=== PATIENT | female | born 1935 | race Caucasian/White ===

== ENCOUNTER 2018-01-17 09:56 | Outpatient (CLI) | payer MEDICARE | END 2018-01-17 09:57 | disposition home or self-care (01) | LOC: BICMAMMO 09:56 | PROVIDERS: ATTEND Internal Medicine Medical Oncology | DX: Z08 Encounter for follow-up examination after completed treatment for malignant neoplasm (principal); Z85.3 Personal history of malignant neoplasm of breast; Z85.72 Personal history of non-Hodgkin lymphomas; Z80.3 Family history of malignant neoplasm of breast | CPT/HCPCS: 77066; G0279 ==

== ENCOUNTER 2018-05-21 16:14 | Observation (INO) | payer MEDICARE ==
[2018-05-21 17:04] LABS: #Eosinphils 0.2 thou/uL (0.0-0.7); #Lymphocytes 1.8 thou/uL (1.20-3.40); #Monocytes 1.1 thou/uL (0.11-0.59); #Neutrophils 4.9 thou/uL (1.40-6.50); %Basophils 0.4 % (0.0-1.0); %Lymphocytes 22.1 % (21.0-51.0); %Monocytes 13.7 % (0.0-10.0); %Neutrophils 60.8 % (42.0-75.0); Hemoglobin 14.5 g/dL (12.0-16.0); Mean Corpuscular HGB CONC 32.9 g/dL (32.0-36.0); Mean Corpuscular Hemoglobin 30.3 pg (27.0-31.0); Mean Corpuscular Volume 92.2 fL (78.0-98.0); Mean Platelet Volume 8.9 fL (7.4-10.4); Platelet Count 122 thou/uL (130-400); RBC Distribution Width 13.4 % (11.5-14.5); Red Blood Cell (RBC) Count 4.76 mill/uL (4.20-5.40)
--- NOTE | 2018-05-21 17:09 | RAD ---
CHEST 1 VIEW: HISTORY: An 83-year-old female with a history of chest pain, left-sided neck pain. FINDINGS: Left ICD. Right subclavian catheter and injection port. Borderline cardiomegaly. Moderate-size hia gautam hernia. Arthrosis changes of both shoulders. Linear parenchymal changes bilaterally which appea r stable with some minimal pleural thickening in the left costophrenic angle. IMPRESSION: Overall stable appearance to the chest. Moderate-sized hiatal hernia. No evidence for pneumonia or other acute process. POS: JORGE
[2018-05-21 17:14] LABS: INR-International Normal Ratio 1.3; PTT 31.4 SEC (22.9-36.1); Prothrombin Time 16.4 SEC (12.0-14.7)
[2018-05-21 17:28] LABS: ALT (SGPT) 13 U/L (8-55); AST (SGOT) 23 U/L (5-34); Albumin 4.2 g/dL (3.4-4.8); Alkaline Phosphatase 76 U/L (40-150); Anion Gap 11 mmol/L (10-20); BUN (Urea Nitrogen) 17 mg/dL (9.8-20.1); Bilirubin, Total 0.7 mg/dL (0.2-1.2); Calc. Creatinine Clearance 0 mL/min (70-130); Calcium 9.6 mg/dL (7.8-10.44); Carbon Dioxide 26 mmol/L (23-31); Chloride 98 mmol/L (98-107); Estimated GFR-MDRD 66; Glucose 132 mg/dL (83-110); Potassium 3.8 mmol/L (3.5-5.1); Protein, Total 7.2 g/dL (6.0-8.3); Sodium 131 mmol/L (136-145)
[2018-05-21 20:47] LABS: Troponin I Less than 0.010 ng/mL (< 0.028)
[2018-05-21] MEDS ORDERED: Polyethylene Glycol 3350 17 GM Packet PO SCH (21:00)
[2018-05-21] MEDS ORDERED: Fluticasone Propionate Nasal Spray 16 gm Bottle NASAL PRN (22:11)
[2018-05-21] MEDS ORDERED: Loperamide HCl 2 MG CAP PO PRN ×2 (22:14)
[2018-05-21] MEDS ORDERED: hydrALAZINE 20 MG/ML VIAL SLOW IVP PRN (22:14)
[2018-05-21] MEDS ORDERED: Nitroglycerin 0.4 MG TAB (25 Tab Bottle) SL PRN (22:14)
[2018-05-21] MEDS ORDERED: Senokot S 8.6-50 MG TAB PO PRN (22:14)
[2018-05-21] MEDS ORDERED: Sodium Chloride 0.65% Nasal 44 ML BOT EA NARE PRN (22:14)
[2018-05-21] MEDS ORDERED: cloNIDine 0.1 MG TAB PO PRN (22:14)
[2018-05-21] MEDS ORDERED: Ondansetron PF 4 MG/2 ML Vial IVP PRN (22:14)
[2018-05-21] MEDS ORDERED: Benzonatate 100 MG CAP PO PRN (22:14)
[2018-05-21] MEDS ORDERED: Acetaminophen 500 MG TAB PO PRN (22:14)
[2018-05-21] MEDS ORDERED: Aspirin 325 mg Enteric Coated Tablet PO SCH (22:15)
[2018-05-21] MEDS ORDERED: Metoprolol Tartrate 25 MG TAB PO SCH (22:15)
[2018-05-21 23:27] LABS: Troponin I Less than 0.010 ng/mL (< 0.028)
[2018-05-22 00:14] VITALS: BMI 31.0
--- NOTE | 2018-05-22 01:55 | HP ---
PRIMARY CARE PHYSICIAN: Rebecca Govea DO PRIMARY ACADEMIC REGISTRAR: Stephen Galvan MD The patient was seen prior to midnight. CHIEF COMPLAINT: Chest pain. HISTORY OF PRESENTING ILLNESS: Ms. Welch is a very pleasant 83-year-old female with past medical history of lymphoma, tachy-ida syndrome status post pacemaker placement, chronic atrial fibrillation, hypothyroidism, who presented to the emergency room with the above-mentioned complaint. History is mainly obtained by the patient herself, who is a rather poor historian because she is extremely hard of hearing. Electronic medical records have been reviewed. According to Ms. Welch, she had to call EMS when she had sudden onset of chest pain earlier this afternoon around 2:30 p.m. She had just sat down on bed after changing her clothes and she states that it hurt in the center of her chest and went to her upper back. She had no nausea, vomiting, diaphoresis, lightheadedness, or palpitation with that. She has not had any shortness of breath. She denies having similar symptoms in the past. She has no recent illnesses. She has history of tachy-ida syndrome requiring pacemaker placement, as well as chronic atrial fibrillation on chronic anticoagulation with Xarelto. She is compliant with the medications. The patient has a cardiac catheterization in 2015, which was negative for any significant coronary artery disease. Upon presentation to the emergency room, she was hemodynamically stable with a blood pressure of 150/72, pulse of 77. Her initial workup included a 12-lead EKG, which showed rate-controlled atrial fibrillation at 68 beats per minute with nonspecific ST and T-wave abnormality, possibly digitalis effect. QTc at 408 milliseconds. Her chest x-ray was unremarkable. Her cardiac enzymes have been trended since then and troponin has been within normal limits x3. BNP is 170. She is now being admitted under observation status for further workup for chest pain and rule out ACS. At the time of my evaluation, the patient is symptom free and resting comfortably. PAST MEDICAL HISTORY: 1. Chronic atrial fibrillation on chronic anticoagulation with Xarelto. 2. History of tachy-ida syndrome, status post pacemaker placement. 3. History of chronic diastolic congestive heart failure. 4. Hypothyroidism. 5. Dyslipidemia. 6. Osteoarthritis. PROCEDURES DONE: 1. Cardiac catheterization in August 2015, which revealed no significant coronary artery disease. 2. Pacemaker insertion, 09/10/2015. 3. Thyroid surgery. 4. Right knee surgery. 5. Bilateral hip replacement. ALLERGIES: NO KNOWN MEDICATION ALLERGIES. FAMILY HISTORY: Significant for mother with colon cancer and father with heart disease. SOCIAL HISTORY: She lives alone and her family lives close by. Walks with the help of a rolling walker. No history of drug, alcohol, or tobacco abuse. HOME MEDICATIONS: Listed as below: 1. Tylenol p.r.n. 2. Digoxin 0.125 mg daily. 3. Aspirin 81 mg daily. 4. Iron 27 mg daily. 5. Lasix 20 mg daily. 6. Flonase daily. 7. Synthroid 112 mcg daily. 8. Lansoprazole 30 mg daily. 9. [id number] g daily. 10. Fish oil daily. 11. Xarelto 20 mg daily. 12. Pravastatin 20 mg daily. 13. Lopressor 12.5 mg p.o. b.i.d. REVIEW OF SYSTEMS: A 12-point review of system is done. It is negative except for those mentioned in the history and physical. CODE STATUS: Full code discussed with the patient in detail. LABORATORY DATA: Her CBC is unremarkable. PT, PTT, INR are within normal limits. Serum chemistries unremarkable. Blood sugar 132, troponin less than 0.010 x3. BNP of 170. Chest x-ray by my review shows a moderate-sized hiatal hernia. She has a right subclavian port and pacemaker in place on the left side. There is no pleural effusion, edema, or infiltrate. A 12-lead EKG per my review shows rate-controlled atrial fibrillation. PHYSICAL EXAMINATION: VITAL SIGNS: Upon presentation, blood pressure 150/72, pulse of 77, respirations 20, saturating 98% on room air, temperature 98.7. GENERAL: No acute distress. Awake, alert, oriented x3. Lying comfortably in bed, in no acute distress. HEENT: Mucous membrane is moist and pink. No oropharyngeal exudate or erythema. Head is normocephalic, atraumatic. Pupils are equal, reactive to light and accommodation. Extraocular movement intact. NECK: Supple without any lymphadenopathy, JVD or bruit. CHEST: Clear to auscultation without any wheezing, rales or rhonchi. Rhythm is regular without any murmurs, rubs, or gallops. ABDOMEN: Soft, nontender, nondistended with positive bowel sounds. EXTREMITIES: Free of any cyanosis, clubbing, or edema. NEUROLOGICAL: Nonfocal. SKIN: Free of any rashes or bruises, feels warm and dry to touch. PSYCHIATRIC: Normal affect. IMPRESSION AND PLAN: 1. Chest pain. The patient had transient symptoms and most likely it is related to her moderate-sized hiatal hernia. We will continue her on proton pump inhibitor, but will also give her a dose of aspirin. Continue her aspirin, statin, and beta agata for now. The patient had a normal cardiac catheterization two years ago. To rule out acute coronary syndrome, we will also have a nuclear medicine stress test in the morning. She is hemodynamically stable. Serial cardiac enzymes have been trended and are negative. Likelihood of acute coronary syndrome clinically is rather low. If her stress test is abnormal, we will consult Cardiology. 2. History of chronic atrial fibrillation. She is currently rate controlled on beta blockers and will continue that. Continue digoxin and Xarelto for secondary stroke prophylaxis. 3. History of chronic diastolic congestive heart failure, seems to be at baseline. The patient is asymptomatic. I do not have any echocardiogram for her in the chart. 4. History of tachy-ida syndrome, status post pacemaker placement. We will have the pacemaker interrogated. 5. Hypothyroidism. We will restart her home medication of levothyroxine. 6. Deep venous thrombosis and gastrointestinal prophylaxis. 7. Code status, full code discussed with the patient in detail. Ms. Welch is currently being admitted to the hospital under observation status to rule out ACS. Further management will depend upon her clinical course. Job ID: [id number]
[2018-05-22] MEDS ORDERED: Levothyroxine Sodium 112 MCG TAB PO SCH (06:00)
[2018-05-22] MEDS ORDERED: Fish Oil 1,000 MG CAP PO SCH (09:00)
[2018-05-22] MEDS ORDERED: Metoprolol Tartrate 25 MG TAB PO SCH (09:00)
[2018-05-22] MEDS ORDERED: Furosemide 40 MG TAB PO SCH (09:00)
[2018-05-22] MEDS ORDERED: Digoxin 0.125 MG TAB PO SCH (09:00)
[2018-05-22] MEDS ORDERED: Ferrous Sulfate 325 MG TAB PO SCH (09:00)
[2018-05-22] MEDS ORDERED: Multivit, Therapeutic 1 TAB PO SCH (09:00)
[2018-05-22] MEDS ORDERED: ADENOSINE 60 MG/20 ML VIAL ONE (09:44)
--- NOTE | 2018-05-22 15:21 | NM ---
NUCLEAR MEDICINE CARDIAC MYOCARDIAL PERFUSION SPECT EJECTION FRACTION STUDY WALL MOTION CINE: HISTORY: 83-year-old female with congestive heart failure, dyslipidemia, atrial fibrillation, and family histo ry of coronary artery disease, presents with chest pain. TECHNIQUE: Number of days: 1 Rest study: Tc99m sestamibi (Cardiolite) dose: 10.6 mCi Pharmacologic stress: adenosine dose: 48.6 mg Stress study: Tc99m sestamibi (Cardiolite) dose: 33.0 mCi FINDINGS: CARDIAC (MYOCARDIAL PERFUSION) SPECT There are no reversible myocardial perfusion defects. EJECTION FRACTION STUDY EF = 53% WALL MOTION CINE Normal. IMPRESSION: No evidence of reversible ischemia. JARROD Elliott POS: JORGE
[2018-05-22 15:58] VITALS: BP 135/64; TEMP 98.6
[2018-05-22] MEDS ORDERED: Rivaroxaban 10 MG TAB PO SCH (17:00)
[2018-05-22] MEDS ORDERED: Pravastatin Sodium 20 MG TAB PO SCH (21:00)
--- NOTE | 2018-05-23 06:40 | DIS ---
DATE OF ADMISSION: 05/21/2018 DATE OF DISCHARGE: 05/22/2018 DIAGNOSIS AT THE TIME OF DISCHARGE: Chest pain, acute coronary syndrome was ruled out with EKG, three sets of cardiac enzymes and nuclear medicine stress test. HISTORY OF PRESENT ILLNESS: The patient is an 83-year-old female with past medical history for lymphoma, tachy-ida syndrome status post pacemaker placement, chronic atrial fibrillation, and hypothyroidism, who presented to the emergency room with chest pain. There was radiation to the back. The pain was located in the upper chest, lasted a few minutes. There was no nausea, vomiting, diaphoresis, lightheadedness, or palpitations. She did not get short of breath. She is in chronic atrial fibrillation, on chronic anticoagulation with Xarelto. She had cardiac catheterization done in 2015, which was negative for any significant coronary artery disease. The patient had a 12-lead EKG which showed atrial fibrillation with ventricular rate of 68 beats per minute. Nonspecific ST-T wave abnormalities. A chest x-ray was unremarkable. Three sets of cardiac enzymes came back within normal limits. BNP was 170. She got admitted to the hospital for a stress test, which was done and it came back negative for any reversible ischemia. The wall motion was normal. Ejection fraction was evaluated at 53%. The patient is doing well. She does not have any chest pain anymore, it did not come back. Her blood pressure is 135/64, pulse is 62, temperature is 98.6, respiratory rate is 21, O2 saturation is 99% on room air. She is seen and examined before she is discharged. DISCHARGE DISPOSITION: To home. ACTIVITY: As tolerated. DIET: Heart healthy. FOLLOWUP: She is going to follow up with Dr. Galvan, her dry food products mixer in the next week. Time spent in this discharge is less than 30 minutes. Job ID: [id number]
== END 2018-05-22 17:42 | disposition home or self-care (01) ==
LOC: ERS 16:14 → 2SW 19:50
PROVIDERS: ADMIT Internal Medicine Infectious Disease; ATTEND Internal Medicine Infectious Disease
DX: R07.9 Chest pain, unspecified (principal); I48.2 Chronic atrial fibrillation; I50.32 Chronic diastolic (congestive) heart failure; E03.9 Hypothyroidism, unspecified; E78.5 Hyperlipidemia, unspecified; M19.90 Unspecified osteoarthritis, unspecified site; K44.9 Diaphragmatic hernia without obstruction or gangrene; Z85.72 Personal history of non-Hodgkin lymphomas; Z95.0 Presence of cardiac pacemaker; Z96.643 Presence of artificial hip joint, bilateral; Z79.82 Long term (current) use of aspirin; Z79.01 Long term (current) use of anticoagulants; Z79.899 Other long term (current) drug therapy; Z98.890 Other specified postprocedural states
CPT/HCPCS: 71045; 78452; 80053; 83880; 84484 ×2; 85025; 85610; 85730; 93005; 93017; 99285; A9500; G0378 ×2; 36415; J0153

== ENCOUNTER 2018-09-20 12:36 | Day surgery (SDC) | payer MEDICARE ==
[2018-09-19 14:11] VITALS: BMI 30.3
[2018-09-20] MEDS ORDERED: Lidocaine 1% PF 5 ML VIAL ONE (15:39)
[2018-09-20] MEDS ORDERED: PROPOFOL 200 MG/20 ML VIAL ONE (15:39)
[2018-09-20] MEDS ORDERED: ePHEDrine 50 MG/ML VIAL ONE (15:39)
--- NOTE | 2018-09-20 22:35 | OP ---
DATE OF PROCEDURE: 09/20/2018 TITLE OF PROCEDURE: Esophagogastroduodenoscopy with biopsy. PREPROCEDURE DIAGNOSES: 1. Atypical chest pain. 2. History of hiatal hernia. POSTPROCEDURE DIAGNOSES: 1. Exam to second portion of duodenum. 2. Large 5 cm sliding hiatal hernia. 3. No evidence of esophageal or gastric ulcer. 4. Scattered whitish colored plaques in the mid esophagus at 22 to 23 cm from the incisors, biopsied. Appearance is suggestive of esophageal candidiasis. 5. Normal-appearing stomach and duodenum. PROCEDURE IN DETAIL: Written informed consent was obtained. The patient was brought to the endoscopy suite. Total intravenous anesthesia was administered by Ruth Queen CRNA. The patient was placed in the left lateral decubitus position. A bite block was inserted into the mouth. A Pentax video diagnostic gastroscope was introduced into the oral cavity and the esophagus was carefully intubated. The gastroscope was advanced under direct visualization to the second portion of the duodenum. Endoscopic findings revealed a large 5-cm sliding hiatal hernia. There was no evidence of mass or erosive esophagitis. No ulcer was seen. The stomach was entered and carefully examined. This included a retroflex view of the cardia and fundus. The retroflexed view demonstrated the hiatal hernia. There were no other significant findings in the stomach. The duodenum from the bulb to the second portion was examined and appeared normal. No duodenal ulcers were seen. The stomach was decompressed as the endoscope was removed from the patient. There were no immediate complications. She was repositioned for the colonoscopy. RECOMMENDATIONS: 1. Await biopsy results. 2. Ask the patient to call me in 1 week for biopsy results. 3. Return to clinic in 3 weeks. 4. Continue lansoprazole 30 mg daily, may increase to 30 mg b.i.d. for reflux exacerbations. 5. Proceed with colonoscopy. 6. Resume Xarelto tomorrow. 7. Resume all other previous medications today. Job ID: [id number]
--- NOTE | 2018-09-21 09:39 | OP ---
DATE OF PROCEDURE: 09/20/2018 PROCEDURE PERFORMED: Colonoscopy with snare polypectomy and biopsy. PREPROCEDURE DIAGNOSES: 1. Hemoccult-positive stools. 2. Black stools. 3. Anemia. POSTPROCEDURE DIAGNOSES: 1. Exam to cecum; adequate bowel preparation. 2. Diffusely redundant colon. 3. Diffuse melanosis coli, mild. 4. A 2.6 cm exophytic cecal mass, biopsied. 5. Three diminutive sessile polyps in the transverse colon, removed by cold snare technique. 6. Diminutive ascending colon polyp 3 mm in diameter, removed by cold snare technique. 7. Small internal hemorrhoids, not actively bleeding. 8. Ejngt-yh-mnwehg external hemorrhoids, not actively bleeding. 9. Otherwise normal colonoscopy. PROCEDURE: Written informed consent was obtained. Upon completion of the EGD, the patient was repositioned for the colonoscopy. Total intravenous anesthesia was provided by Ruth Queen CRNA. The patient was placed in the left lateral decubitus position. A digital rectal exam showed small to medium external hemorrhoids and perianal skin tags that were not actively bleeding. There was mild anal stenosis. A Pentax video colonoscope was inserted through the anal canal and advanced under direct visualization to the cecum. Position in the cecum was verified by clear identification of the appendiceal orifice and the ileocecal valve. The quality of the bowel preparation was adequate. The colon was diffusely tortuous. The mucosa demonstrated diffuse darkening consistent with mild melanosis coli. In the cecum, a 2.6 cm circular exophytic friable firm mass was identified and biopsied. The appearance was consistent with a malignant neoplasm. Additional findings in the right colon included a 3 mm polyp in the mid ascending colon that was removed by cold snare technique. Three additional sessile polyps were identified and removed in the transverse colon. They ranged in size from 3 mm to 5 mm in diameter. All polyp tissue was retrieved and submitted to pathology. In the rectum, a retroflex view demonstrated small internal hemorrhoids that were not actively bleeding. The colon was decompressed as the colonoscope was completely removed from the patient. She was transferred to the Day Stay surgery area for postprocedure monitoring. There were no immediate complications. RECOMMENDATIONS: 1. Resume Xarelto tomorrow. 2. Resume all other previous medications today. 3. Await pathology results. 4. Asked patient to call me in one week for pathology results. 5. Follow up in GI clinic in 2-3 weeks. 6. Pending pathology results, will likely require surgical consultation. 7. Repeat colonoscopy recommendations pending pathology results and patient's clinical course. Job ID: [id number]
== END 2018-09-20 17:20 | disposition home or self-care (01) ==
LOC: SDC 12:36
PROVIDERS: ATTEND Internal Medicine Gastroenterology
PROC: 0DBH8ZX Excision of Cecum, Via Natural or Artificial Opening Endoscopic, Diagnostic (ICD-10-PCS; principal; 2018-09-20)
PROC: 0DBK8ZX Excision of Ascending Colon, Via Natural or Artificial Opening Endoscopic, Diagnostic (ICD-10-PCS; 2018-09-20)
PROC: 0DBL8ZX Excision of Transverse Colon, Via Natural or Artificial Opening Endoscopic, Diagnostic (ICD-10-PCS; 2018-09-20)
PROC: 0DB58ZX Excision of Esophagus, Via Natural or Artificial Opening Endoscopic, Diagnostic (ICD-10-PCS; 2018-09-20)
DX: C18.0 Malignant neoplasm of cecum (principal); D12.3 Benign neoplasm of transverse colon; D12.2 Benign neoplasm of ascending colon; B37.81 Candidal esophagitis; D64.9 Anemia, unspecified; K64.4 Residual hemorrhoidal skin tags; K64.8 Other hemorrhoids; K63.89 Other specified diseases of intestine; K44.9 Diaphragmatic hernia without obstruction or gangrene; R07.89 Other chest pain; E03.9 Hypothyroidism, unspecified; K21.9 Gastro-esophageal reflux disease without esophagitis; M19.90 Unspecified osteoarthritis, unspecified site; I50.9 Heart failure, unspecified; I48.91 Unspecified atrial fibrillation; E78.5 Hyperlipidemia, unspecified; Z79.01 Long term (current) use of anticoagulants; Z79.82 Long term (current) use of aspirin; Z79.899 Other long term (current) drug therapy; Z95.0 Presence of cardiac pacemaker
CPT/HCPCS: 88305; 88312; 88313; J1642; J2001; J2704; J3490

== ENCOUNTER 2018-09-29 13:40 | Inpatient (IN) | payer MEDICARE ==
[2018-09-29] MEDS ORDERED: Bisacodyl 5 MG TAB PO PRN (15:03)
[2018-09-29] MEDS ORDERED: Acetaminophen 325 MG TAB PO PRN (15:03)
[2018-09-29 17:13] LABS: Bilirubin Negative (Negative); Blood, Urine Negative (Negative); Clarity CLEAR (Clear); Glucose, Urine (Dipstick) Negative (Negative); Leukocyte Trace (Negative); Nitrite Negative (Negative); Protein, Urine (Dipstick) Negative (Neg-Trace); Specific Gravity, Urine 1.004 (1.002-1.036); Urobilinogen 0.2 mg/dL (0.2-1.0)
[2018-09-29 17:15] LABS: Bacteria/HPF None Seen HPF (None Seen); Hyaline Casts/LPF 0-3 HYALINE CAST LPF (0-3 Hyaline); Pathc Cast-AUWi Flag 0.95 (0-2.49); RBC/HPF 0-3 HPF (0-3); WBC/HPF 0-3 HPF (0-3)
[2018-09-29 17:45] LABS: Anion Gap 14 mmol/L (10-20); Carbon Dioxide 23 mmol/L (23-31); Chloride 86 mmol/L (98-107); Potassium 4.1 mmol/L (3.5-5.1)
[2018-09-29 17:52] LABS: Sodium 119 mmol/L (136-145)
--- NOTE | 2018-09-29 18:46 | HP ---
PRIMARY CARE PROVIDER: Rebecca Govea DO CHIEF COMPLAINT: Generalized weakness. HISTORY OF PRESENT ILLNESS: Ms. Welch is a pleasant 83-year-old lady, who was seen at [facility] on September 29, 2018. She has a history of lymphoma, which was diagnosed approximately two years ago. She received Rituxan, 6 days ago for lymphoma. She lives next door to her son and [id number]. For the last week, she has been feeling unwell. Fewyzvoh-dg-kys reports that her voice sounded hoarse. She also reports that patient appeared to be having some congestion in the upper chest. Two days ago, the patient took Robitussin without significant improvement. She usually has low-sodium diet. She reports that over the last week, she has been having generalized weakness. So, she presented to the emergency room at [facility]. At [facility], she was found to have hyponatremia. The patient reports occasional cough, no sputum. She received breathing treatment in [facility] with improvement in her symptoms. The patient denies any chest pain, nausea, or vomiting. She denies any fevers or chills. Of note, the patient was also recently diagnosed with cecal adenocarcinoma. She is scheduled to see Dr. Mitchell sometime next week. Her oncologist is Dr. Lovett. REVIEW OF SYSTEMS: All other systems reviewed and found to be negative. PAST MEDICAL HISTORY: Tachy-ida syndrome status post pacemaker placement, lymphoma, chronic atrial fibrillation, hypothyroidism, recently diagnosed cecal adenocarcinoma, chronic diastolic congestive heart failure, hypothyroidism, dyslipidemia, and osteoarthritis. PAST SURGICAL HISTORY: Thyroid surgery, right knee surgery, bilateral hip replacement, cardiac catheterization in August 2015, no significant coronary artery disease, pacemaker insertion in August 2015. FAMILY HISTORY: Mother with colon cancer and father with heart disease. CODE STATUS: I discussed her code status. She is full code. SOCIAL HISTORY: She has a rolling walker at home. She denies alcohol use, tobacco use, or recreational drug use. ALLERGIES: NO KNOWN DRUG ALLERGIES. CURRENT MEDICATIONS: These need to be clarified. In the past, she was on: 1. Tylenol. 2. Digoxin. 3. Aspirin. 4. Iron. 5. Lasix. 6. Flonase. 7. Synthroid. 8. Lansoprazole. 9. MiraLAX. 10. Fish oil. 11. Rivaroxaban. 12. Pravastatin. 13. Lopressor. PHYSICAL EXAMINATION: GENERAL: On examination, Ms. Welch is awake and alert, not in acute distress. VITAL SIGNS: Blood pressure is 155/62, pulse 63, respiratory rate 20, and oxygen saturation 96% on room air. She is afebrile. EYES: No scleral icterus. No conjunctival pallor. ENT: Dry mucosal membranes. No oropharyngeal erythema or exudates. NECK: Supple, nontender, trachea is midline. RESPIRATORY: Accessory muscles of breathing are not active. Chest wall movements are symmetric bilaterally. LUNGS: Clear to auscultation without wheeze, rhonchi, or crepitations. CARDIOVASCULAR: S1 and S2 are heard, regular. Peripheral pulses palpable. No carotid bruit. No pericardial rub. ABDOMEN: Soft, nontender, bowel sounds are heard. NEUROLOGIC: Cranial nerves 2 through 12 intact, deep tendon reflexes 2+. MUSCULOSKELETAL: Power is 5/5 in all 4 extremities. SKIN: No rashes or subcutaneous nodules. LYMPHATIC: No cervical lymphadenopathy. PSYCHIATRIC: Normal mood, normal affect. The patient is oriented to person, place, and time. LABORATORY DATA: Ms. Welch's labs and investigations were reviewed. Chest x-ray does not appear to show any pulmonary infiltrates. She has a normal TSH. White count and hemoglobin are normal. Platelet count is decreased at 61,000. Last known platelet count was 122,000, on May 21, 2018. She has decreased sodium of 116, last known sodium 130 on September 17, 2018. Normal potassium, normal creatinine, unremarkable liver profile and urinalysis that is only positive for trace leukocyte esterase. ASSESSMENT AND PLAN: Ms. Welch is a pleasant 83-year-old lady, who was seen at [facility] on September 29, 2018. Her problem list includes: 1. Generalized weakness: Most likely secondary to hyponatremia. The patient will be admitted to the hospital for further management. 2. Hyponatremia: Etiology is unclear. We will provide normal saline for gentle hydration and recheck sodium level. We will initiate workup including serum and urine osmolality and urine electrolytes. Nephrology Service is being consulted for opinion and help with management. 3. History of lymphoma: The patient to follow up with Oncology following discharge. 4. Hypertension: We will resume home medications once clarified, monitor vital signs and titrate antihypertensives as needed. Many thanks for allowing me to participate in your patient's care. Please feel free to contact me with any questions or concerns. LEVEL OF RISK: High. LEVEL OF COMPLEXITY: High. Job ID: [id number] MTDD
[2018-09-29 19:15] VITALS: BMI 31.8
[2018-09-29] MEDS: Sodium Chloride 0.9% 1,000 ML IV SCH (19:34)
[2018-09-29] MEDS: Pravastatin Sodium 20 MG TAB PO SCH (20:32)
[2018-09-29] MEDS: Metoprolol Tartrate 25 MG TAB PO SCH (20:32)
[2018-09-29] MEDS ORDERED: Tolvaptan 15 MG TAB PO SCH (21:30)
[2018-09-29 22:23] LABS: Anion Gap 11 mmol/L (10-20); Carbon Dioxide 23 mmol/L (23-31); Chloride 88 mmol/L (98-107); Potassium 3.2 mmol/L (3.5-5.1)
[2018-09-29 22:26] LABS: Sodium 119 mmol/L (136-145)
[2018-09-29 23:47] LABS: Potassium, Urine 25.2 mmol/L
[2018-09-29 23:52] LABS: Creatinine, Urine 64.12 mg/dL (47-110)
[2018-09-30 06:06] LABS: Anion Gap 12 mmol/L (10-20); BUN (Urea Nitrogen) 6 mg/dL (9.8-20.1); Calc. Creatinine Clearance 93 mL/min (70-130); Carbon Dioxide 19 mmol/L (23-31); Chloride 93 mmol/L (98-107); Estimated GFR-MDRD 87; Glucose 101 mg/dL (83-110); Potassium 3.9 mmol/L (3.5-5.1); Sodium 120 mmol/L (136-145)
[2018-09-30] MEDS: Levothyroxine Sodium 112 MCG TAB PO SCH (06:22)
[2018-09-30] MEDS: Aspirin Chewable 81 MG TAB PO SCH (08:35)
[2018-09-30] MEDS: Metoprolol Tartrate 25 MG TAB PO SCH ×2 (08:35→20:24)
[2018-09-30] MEDS: Ferrous Sulfate 325 MG TAB PO SCH (08:35)
[2018-09-30] MEDS: Digoxin 0.125 MG TAB PO SCH (08:35)
[2018-09-30] MEDS ORDERED: Furosemide 20 MG TAB PO SCH (09:00)
[2018-09-30] MEDS ORDERED: Tolvaptan 15 MG TAB PO SCH (09:00)
--- NOTE | 2018-09-30 10:56 | RAD ---
EXAM: Two views chest PROVIDED CLINICAL HISTORY: Shortness of breath COMPARISON: 10/11/2017 FINDINGS: Single lead left subclavian cardiac pacemaking device remains place. A right sided Mediport catheter is also stable in position. Cardiac silhouette is mildly enlarged. Pulmonary vasculature is within normal limits. Vascular calcifications are seen in the thoracic aorta.. There is mild eventration of the anterior right hemidiaphragm with mild atelectasis at the right lung base. The lungs otherwise appear clear minimal stable area of scarring in the lingula. Degenerative changes are again seen in t he spine. There is bilateral glenohumeral osteoarthropathy again present. There is a hiatal hernia seen in the retrocardiac region. IMPRESSION: 1. Mild cardiomegaly without overt CHF. 2. No acute cardiopulmonary process. 3. Hiatal hernia.
--- NOTE | 2018-09-30 11:10 | CON ---
DATE OF CONSULTATION: HISTORY OF PRESENT ILLNESS: Ms. Welch is an 83-year-old white female, who was admitted for generalized malaise. She was noted to be hyponatremic. Her serum sodium was initially noted at 130 on admission, currently is now 120. She was also given empiric volume repletion. 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 She was started tolvaptan last night. Serum sodium is currently noted at 120. REVIEW OF SYSTEMS: Positive for generalized malaise. No nausea. No vomiting. No diarrhea. Decreased appetite. Decreased energy level. No gross hematuria. No dysuria. No urinary frequency. No diarrhea. Positive for constipation. No abdominal pain. No syncopal episode. MEDICATIONS: Currently; 1. DuoNeb q.6 p.r.n. 2. Aspirin 81 mg daily. 3. Dulcolax p.r.n. 4. Ferrous sulfate 325 mg once a day. 5. Lanoxin 0.125 mg q.a.m. 6. Synthroid 112 mcg daily. 7. Metoprolol 25 mg p.o. b.i.d. 8. Pravastatin 20 mg tablet at bedtime. 9. Normal saline at 70 mL/h. 10. Tolvaptan 15 mg daily. PAST MEDICAL HISTORY: 1. Hypothyroidism. 2. Atrial fibrillation. 3. Hyperlipidemia. 4. History of chronic hyponatremia/acute hyponatremia. 5. Recent diagnosis of colon cancer ? 6. Diastolic CHF. 7. DJD. 8. History of lymphoma. PAST SURGICAL HISTORY: Status post colonoscopy, status post thyroid surgery, status post right knee surgery, status post bilateral hip replacement, status post cardiac cath, and status post pacemaker placement. SOCIAL HISTORY: The patient is . Lives in [place]. She lives alone. Three children with 1 . 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 No alcohol. Sedentary lifestyle. ALLERGIES: NONE. TRAUMA: None. IMMUNIZATION: Up-to-date. HOSPITALIZATIONS: Please see past medical history. FAMILY HISTORY: No family history of ESRD. PHYSICAL EXAMINATION: VITAL SIGNS: Blood pressure is noted at 120/56, heart rate 68, respiratory rate 18, temperature 97.6, and pulse ox 97%. GENERAL: Awake, alert, and comfortable, not in overt distress. SKIN: Adequate turgor. HEENT: She has pinkish conjunctivae. Anicteric sclerae. NECK: No neck mass. No carotid bruits. No JVD. CHEST: No deformities. LUNGS: Clear breath sounds. No wheezing. No crackles. HEART: Normal sinus rhythm. No murmur. No gallops. No rubs. ABDOMEN: Globular, soft, and nontender. No masses. EXTREMITIES: No edema. No deformities. NEUROLOGIC: Awake and oriented to 3 spheres. Moving all extremities. No tremors or asterixis. LABORATORY DATA: Laboratories of September 29, 2018, white count 7.7 and hemoglobin 13.5. September 30, 2018; sodium 120, potassium 3.9, chloride 93, carbon dioxide 19, BUN is 6, creatinine 0.65, glucose 87, calcium 9.0, magnesium 2.2, and uric acid is 2.5 - decrease. BNP 249. Serum osmolality 244. September 29, 2018, serum sodium was 119. September 29, 2018, 11:03, serum sodium was 116. September 17, 2018, serum sodium was 130. Chest x-ray increased lung markings. ASSESSMENT AND PLAN: Hyponatremia - this may be chronic in nature as suggested by the lab. Serum sodium is slowly being corrected. She has been started on tolvaptan. Most recent sodium is 120. Please note this was 116 yesterday. Continue current management. I would suggest we discontinue the IV fluids. Continue free water restriction. The low uric acids is suggestive more of syndrome of inappropriate antidiuretic hormone secretion is rather than being hypovolemic hyponatremia. Urinalysis showed very dilute urine. In addition, there is no suggestion that she is volume depleted as suggested by a urine sodium that is noted at 45. Overall, agree with current management. Recheck basic metabolic in a.m. Job ID: [id number]
--- NOTE | 2018-09-30 14:39 | PDOC.PN ---
- Subjective Encounter Start Date: 09/30/18 Encounter Start Time: 14:36 Subjective: Pt is seen and examined for Hyponatremia, Pt C/o SOB with Wheezing - Objective Resuscitation Status - Order Detail: 09/29/18 17:26 Resuscitation Status Routine Resuscitation Status: FULL: Full Resuscitation Discussed with: patient Vital Signs & Weight: Vital Signs (12 hours) Temp Pulse Resp BP Pulse Ox 09/30/18 12:46 61 16 100 09/30/18 08:35 68 09/30/18 08:30 97 09/30/18 08:26 97.6 F 68 18 120/56 L 97 09/30/18 04:00 97.7 F 69 22 H 116/69 98 Weight Weight 195 lb 5.273 oz I&O: 09/29/18 09/30/18 10/01/18 06:59 06:59 06:59 Intake Total 1010 Output Total 1500 Balance -490 Result Diagrams: 09/30/18 05:20 Phys Exam - Physical Examination HEENT: PERRLA, sclera anicteric, oral pharynx no lesions Neck: no nodes, no JVD, supple Respiratory: no wheezing, no rales, no rhonchi, clear to auscultation bilateral Cardiovascular: RRR, no significant murmur, no rub, gallop Gastrointestinal: soft, non-tender, no distention Musculoskeletal: no edema Neurological: non-focal, normal sensation, moves all 4 limbs Lymphatic: no nodes Dx/Plan - Plan plan discussed w/ family * . Plan: 1) Hyponatremia , possible SIADH Water restriction, Telvapton as per Nephro Trending Upward 120 today 2) DVT Prophyaxis Xarelto Review of Systems - Review of Systems Eyes: negative: Pain, Vision Change, Conjunctivae Inflammation, Eyelid Inflammation, Redness, Other ENT: negative: Ear Pain, Ear Discharge, Nose Pain, Nose Discharge, Nose Congestion, Mouth Pain, Mouth Swelling, Throat Pain, Throat Swelling, Other Respiratory: negative: Cough, Dry, Shortness of Breath, Hemoptysis, SOB with Excertion (Wheezing ), Pleuritic Pain, Sputum, Wheezing Cardiovascular: negative: chest pain, palpitations, orthopnea, paroxysmal nocturnal dyspnea, edema, light headedness, other Gastrointestinal: negative: Nausea, Vomiting, Abdominal Pain, Diarrhea, Constipation, Melena, Hematochezia, Other Genitourinary: negative: Dysuria, Frequency, Incontinence, Hematuria, Retention , Other Musculoskeletal: negative: Neck Pain, Shoulder Pain, Arm Pain, Back Pain, Hand Pain, Leg Pain, Foot Pain, Other - Medications/Allergies Allergies/Adverse Reactions: Allergies Allergy/AdvReac Type Severity Reaction Status Date / Time No Known Allergies Allergy Verified 09/19/18 14:11 Medications: Current Medications Acetaminophen (Tylenol) 650 mg PO Q4H PRN PRN Reason: Headache/Fever/Mild Pain (1-3) Albuterol/Ipratropium (Duoneb) 3 ml NEB Q6H PRN PRN Reason: SOB &/or Wheezing Last Admin: 09/30/18 01:49 Dose: 3 ml Albuterol/Ipratropium (Duoneb) 3 ml NEB L8ES-IM [facility] Last Admin: 09/30/18 12:46 Dose: 3 ml Aspirin (Aspirin Chewable) 81 mg PO DAILY [facility] Last Admin: 09/30/18 08:35 Dose: 81 mg Bisacodyl (Dulcolax) 10 mg PO DAILYPRN PRN PRN Reason: Constipation Digoxin (Lanoxin) 0.125 mg PO QAM [facility] Last Admin: 09/30/18 08:35 Dose: 0.125 mg Ferrous Sulfate (Feosol) 325 mg PO DAILY [facility] Last Admin: 09/30/18 08:35 Dose: 325 mg Levothyroxine Sodium (Synthroid) 112 mcg PO 0600 [facility] Last Admin: 09/30/18 06:22 Dose: 112 mcg Metoprolol Tartrate (Lopressor) 25 mg PO BID [facility] Last Admin: 09/30/18 08:35 Dose: 25 mg Pravastatin Sodium (Pravachol) 20 mg PO HS [facility] Last Admin: 09/29/18 20:32 Dose: 20 mg Rivaroxaban (Xarelto) 20 mg PO 1700 [facility] Sodium Chloride (Flush - Normal Saline) 10 ml IVF Q12HR [facility] Last Admin: 09/30/18 08:35 Dose: 10 ml Sodium Chloride (Flush - Normal Saline) 10 ml IVF PRN PRN PRN Reason: Saline Flush Tolvaptan (Samsca) 15 mg PO DAILY [facility] Last Admin: 09/30/18 09:29 Dose: 15 mg
[2018-09-30] MEDS: Rivaroxaban 10 MG TAB PO SCH (17:31)
[2018-09-30] MEDS: Sodium Chloride 0.9% 1,000 ML IV SCH (20:05)
[2018-09-30] MEDS: Pravastatin Sodium 20 MG TAB PO SCH (20:24)
[2018-10-01 05:09] LABS: #Eosinphils 0.2 thou/uL (0.0-0.7); #Lymphocytes 1.4 thou/uL (1.20-3.40); #Monocytes 1.1 thou/uL (0.11-0.59); #Neutrophils 5.4 thou/uL (1.40-6.50); %Basophils 0.4 % (0.0-1.0); %Eosinophils 2.7 % (0.0-10.0); %Lymphocytes 17.4 % (21.0-51.0); %Monocytes 13.7 % (0.0-10.0); %Neutrophils 65.9 % (42.0-75.0); Hemoglobin 13.6 g/dL (12.0-16.0); Mean Corpuscular HGB CONC 32.7 g/dL (32.0-36.0); Mean Corpuscular Hemoglobin 30.3 pg (27.0-31.0); Mean Corpuscular Volume 92.5 fL (78.0-98.0); Mean Platelet Volume 9.7 fL (7.4-10.4); Platelet Count 82 thou/uL (130-400); RBC Distribution Width 13.6 % (11.5-14.5); Red Blood Cell (RBC) Count 4.49 mill/uL (4.20-5.40); White Blood Cell (WBC) Count 8.2 thou/uL (4.8-10.8)
[2018-10-01 05:27] LABS: Anion Gap 13 mmol/L (10-20); BUN (Urea Nitrogen) 9 mg/dL (9.8-20.1); Calc. Creatinine Clearance 82 mL/min (70-130); Calcium 9.7 mg/dL (7.8-10.44); Carbon Dioxide 20 mmol/L (23-31); Chloride 103 mmol/L (98-107); Estimated GFR-MDRD 75; Glucose 109 mg/dL (83-110); Sodium 132 mmol/L (136-145)
[2018-10-01] MEDS: Levothyroxine Sodium 112 MCG TAB PO SCH (06:00)
[2018-10-01] MEDS: Metoprolol Tartrate 25 MG TAB PO SCH ×2 (08:05→21:04)
[2018-10-01] MEDS: Ferrous Sulfate 325 MG TAB PO SCH (08:05)
[2018-10-01] MEDS: Aspirin Chewable 81 MG TAB PO SCH (08:05)
[2018-10-01] MEDS: Digoxin 0.125 MG TAB PO SCH (08:05)
--- NOTE | 2018-10-01 09:35 | PRG ---
DATE OF SERVICE: 10/01/2018 SUBJECTIVE: Ms. Welch is an 83-year-old white female, who was seen by the Renal Service for her hyponatremia. 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 Tolvaptan has been started. In addition, I have discontinued her IV fluid. She is now on a free water restriction. No new complaints today, except for the chronic cough. OBJECTIVE: VITAL SIGNS: Blood pressure 168/77, heart rate 118, respiratory rate 20, temperature 98.2, O2 saturation 97%. GENERAL: Awake, alert, sitting comfortable, not in overt distress. SKIN: Adequate turgor. HEENT: Pinkish conjunctivae. Anicteric sclerae. NECK: No neck mass. No carotid bruits. No JVD. CHEST: No deformities. LUNGS: Harsh breath sounds. HEART: Normal sinus rhythm. No murmur. No gallops. No rubs. ABDOMEN: Globular, soft, nontender. No masses. EXTREMITIES: No edema. No deformities. MEDICATIONS: Medications of October 01, 2018 were reviewed. LABORATORY DATA: Laboratories of October 01, 2018; white count 8.2, hemoglobin 13.6. Sodium 132, potassium 4.0, chloride 103, carbon dioxide 20, BUN 9, creatinine 0.74, glucose 109, calcium is 9.7. BNP 249. ASSESSMENT AND PLAN: 1. Chronic hyponatremia-serum sodium is now noted at 132, which is the patient's baseline. She is doing well overall. No mentation changes. I would probably discontinue the tolvaptan tonight. Continue free water restriction. No indication for any hypertonic saline. 2. Chronic cough/chronic obstructive pulmonary disease exacerbation. Continue neb treatment. 3. Please note that the patient has an underlying chronic obstructive pulmonary disease. 4. Overall agree with current management. Recheck basic metabolic profile and CBC in a.m. Job ID: [id number]
[2018-10-01] MEDS: Rivaroxaban 10 MG TAB PO SCH (16:48)
[2018-10-01 16:52] LABS: Platelet Count 93 thou/uL (130-400)
[2018-10-01] MEDS: Diabetic Tussin 200 MG/10 ML UDCUP PO PRN (18:22)
[2018-10-01] MEDS: Pravastatin Sodium 20 MG TAB PO SCH (21:04)
[2018-10-01] MEDS: guaiFENesin ER 600 MG TAB PO SCH (21:04)
--- NOTE | 2018-10-01 22:10 | PDOC.PN ---
- Subjective Encounter Start Date: 10/01/18 Encounter Start Time: 17:00 Patient seen and examined for Gen weakness. Dry cough +. No new complaints. No overnight events - Objective Resuscitation Status - Order Detail: 09/29/18 17:26 Resuscitation Status Routine Resuscitation Status: FULL: Full Resuscitation Discussed with: patient MAR Reviewed: Yes Vital Signs & Weight: Vital Signs (12 hours) Temp Pulse Resp BP Pulse Ox 10/01/18 21:24 84 18 94 L 10/01/18 16:50 97.4 F L 71 20 146/66 H 95 10/01/18 12:30 98.4 F 81 20 121/75 97 Weight Weight 187 lb 4.8 oz I&O: 09/30/18 10/01/18 10/02/18 06:59 06:59 06:59 Intake Total 1010 1550 480 Output Total 1500 3500 650 Balance -490 -1950 -170 Result Diagrams: 10/01/18 16:23 10/01/18 16:23 EKG Reviewed by me: Yes (Tele paced) Phys Exam - Physical Examination Constitutional: NAD Respiratory: no wheezing Scat rhonchi Cardiovascular: no rub, irregular Gastrointestinal: soft, non-tender, positive bowel sounds Musculoskeletal: edema present (1+) Dx/Plan - Plan IMPRESSION: Gen weakness 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 negative: Shortness of Breath, Hemoptysis, Pleuritic Pain, Sputum, Wheezing Cardiovascular: negative: chest pain, palpitations, orthopnea, paroxysmal nocturnal dyspnea, edema, light headedness, other Gastrointestinal: negative: Nausea, Vomiting, Abdominal Pain, Diarrhea, Constipation, Melena, Hematochezia, Other - Medications/Allergies Allergies/Adverse Reactions: Allergies Allergy/AdvReac Type Severity Reaction Status Date / Time No Known Allergies Allergy Verified 09/19/18 14:11 Medications: Current Medications Acetaminophen (Tylenol) 650 mg PO Q4H PRN PRN Reason: Headache/Fever/Mild Pain (1-3) Albuterol/Ipratropium (Duoneb) 3 ml NEB Q6H PRN PRN Reason: SOB &/or Wheezing Last Admin: 10/01/18 21:24 Dose: 3 ml Aspirin (Aspirin Chewable) 81 mg PO DAILY [facility] Last Admin: 10/01/18 08:05 Dose: 81 mg Bisacodyl (Dulcolax) 10 mg PO DAILYPRN PRN PRN Reason: Constipation Digoxin (Lanoxin) 0.125 mg PO QAM [facility] Last Admin: 10/01/18 08:05 Dose: 0.125 mg Ferrous Sulfate (Feosol) 325 mg PO DAILY [facility] Last Admin: 10/01/18 08:05 Dose: 325 mg Guaifenesin (Mucinex) 600 mg PO Q12HR [facility] Last Admin: 10/01/18 21:04 Dose: 600 mg Guaifenesin (Robitussin Sf) 200 mg PO Q4H PRN PRN Reason: Cough Last Admin: 10/01/18 18:22 Dose: 200 mg Levothyroxine Sodium (Synthroid) 112 mcg PO 0600 [facility] Last Admin: 10/01/18 06:00 Dose: 112 mcg Metoprolol Tartrate (Lopressor) 25 mg PO BID [facility] Last Admin: 10/01/18 21:04 Dose: 25 mg Pravastatin Sodium (Pravachol) 20 mg PO HS [facility] Last Admin: 10/01/18 21:04 Dose: 20 mg Rivaroxaban (Xarelto) 20 mg PO 1700 [facility] Last Admin: 10/01/18 16:48 Dose: 20 mg Sodium Chloride (Flush - Normal Saline) 10 ml IVF Q12HR [facility] Last Admin: 10/01/18 21:03 Dose: 10 ml Sodium Chloride (Flush - Normal Saline) 10 ml IVF PRN PRN PRN Reason: Saline Flush
[2018-10-02] MEDS: Levothyroxine Sodium 112 MCG TAB PO SCH (05:10)
[2018-10-02] MEDS: Diabetic Tussin 200 MG/10 ML UDCUP PO PRN (06:10)
[2018-10-02 07:42] LABS: Anion Gap 13 mmol/L (10-20); BUN (Urea Nitrogen) 13 mg/dL (9.8-20.1); Calc. Creatinine Clearance 85 mL/min (70-130); Calcium 9.2 mg/dL (7.8-10.44); Carbon Dioxide 22 mmol/L (23-31); Chloride 97 mmol/L (98-107); Estimated GFR-MDRD 83; Glucose 100 mg/dL (83-110); Magnesium 1.8 mg/dL (1.6-2.6); Sodium 128 mmol/L (136-145)
[2018-10-02 07:54] LABS: #Eosinphils 0.2 thou/uL (0.0-0.7); #Lymphocytes 1.9 thou/uL (1.20-3.40); #Monocytes 1.3 thou/uL (0.11-0.59); %Basophils 0.1 % (0.0-1.0); %Eosinophils 2.5 % (0.0-10.0); %Lymphocytes 20.2 % (21.0-51.0); %Monocytes 13.8 % (0.0-10.0); %Neutrophils 63.3 % (42.0-75.0); Hemoglobin 13.1 g/dL (12.0-16.0); Mean Corpuscular HGB CONC 32.7 g/dL (32.0-36.0); Mean Corpuscular Hemoglobin 30.4 pg (27.0-31.0); Mean Platelet Volume 9.2 fL (7.4-10.4); Platelet Count 90 thou/uL (130-400); Platelet Morphology Comment Appears Decreased; RBC Distribution Width 13.4 % (11.5-14.5); RBC Morphology Normal; White Blood Cell (WBC) Count 9.5 thou/uL (4.8-10.8)
[2018-10-02] MEDS: Aspirin Chewable 81 MG TAB PO SCH (08:40)
[2018-10-02] MEDS: Digoxin 0.125 MG TAB PO SCH (08:40)
[2018-10-02] MEDS: guaiFENesin ER 600 MG TAB PO SCH ×2 (08:41→20:00)
[2018-10-02] MEDS: Ferrous Sulfate 325 MG TAB PO SCH (08:41)
[2018-10-02] MEDS: Metoprolol Tartrate 25 MG TAB PO SCH ×2 (08:42→20:01)
[2018-10-02] MEDS ORDERED: Tolvaptan 15 MG TAB PO SCH (09:00)
[2018-10-02] MEDS: Sodium Chloride 1 GM TAB PO SCH ×2 (10:12→20:01)
--- NOTE | 2018-10-02 10:26 | PRG ---
DATE OF SERVICE: 10/02/2018 SUBJECTIVE: Ms. Welch is an 83-year-old white female seen by Renal Service for her hyponatremia. Serum sodium has slowly improved. She was diagnosed with SIADH. She was given tolvaptan, which improved her serum sodium to a best value of 132. However, this morning, it was noted to be at 128. I have decided to start her on some sodium chloride tablets and resume back tolvaptan. Please note, tolvaptan was discontinued last night. No other complaints. She still has this chronic cough-this has been ongoing for quite some time and most likely from her COPD. Her chest x-ray did not show any overt congestive heart failure per se. OBJECTIVE: VITAL SIGNS: Blood pressure is 109/59, heart rate 60, respiratory rate 18, temperature 97.5, and pulse ox 93%. GENERAL: Noted to be awake, sitting comfortable, not in overt distress. SKIN: Adequate turgor. HEENT: She has pinkish conjunctivae. Anicteric sclerae. No neck mass. No carotid bruits. No JVD. CHEST: No deformities. LUNGS: Harsh breath sounds. Occasional wheezing. HEART: Normal sinus rhythm. No murmur. No gallops or rubs. ABDOMEN: Globular, soft, nontender. No masses. EXTREMITIES: No edema. No deformities. MEDICATIONS: Medications of October 02, 2018 were reviewed. LABORATORY DATA: Laboratories of October 02, 2018; sodium 128, potassium 4, chloride 97, carbon dioxide 22, BUN 13, creatinine 0.68, glucose 100, calcium 9.2, magnesium 1.8. ASSESSMENT AND PLAN: 1. 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 Resume tolvaptan 15 mg tablet q.a.m. In addition, she has been started on sodium chloride 1 g p.o. b.i.d., adjust as needed. I will continue free water restriction with this patient. 2. Chronic cough-most likely from underlying chronic obstructive pulmonary disease. Neb treatment has been increased to q.i.d. dosing. 3. Recheck basic metabolic profile tomorrow. Job ID: [id number]
[2018-10-02] MEDS ORDERED: ISOVUE-370 76%-LOCM 1 ML ONE (10:27)
[2018-10-02] MEDS ORDERED: Iopamidol 370 76% 50 ML VIAL FS ONE (10:27)
--- NOTE | 2018-10-02 12:06 | RAD ---
2 VIEW CHEST: Date: 10/02/18 INDICATION: Cough. Shortness of breath. COMPARISON: 09/30/18. FINDINGS: Gas-filled colon and stomach under left hemidiaphragm. Streaky left basilar atelectasis. Mild cardiom egaly and mild vascular engorgement. Interstitial markings are prominent, but stable. Central line is unchanged. Small effusions may be present blunting the CP angles. This is unchanged. IMPRESSION: Question evidence of left basilar streaky atelectasis and/or infiltrate. Similar findings were presen t previously. No significant interval change. POS: [facility]
--- NOTE | 2018-10-02 13:03 | HP ---
HISTORY OF PRESENT ILLNESS: An 83-year-old female, who I have seen in the past. I placed a MediPort in right subclavian vein for treatment of lymphoma in the past. She is admitted this hospitalization because of bronchitis and hyponatremia. She has been seeing Dr. Godinez. She has been started on Samsca (tolvaptan 15 mg daily) for hyponatremia, for SIADH. The patient, last hospitalization, was seen by Dr. Alston, who performed a colonoscopy on 09/20/2018, noting the exam to the cecum with inadequate bowel prep within the diffusely redundant colon; diffuse melanosis coli; mild 2.6 cm exophytic cecal mass, biopsied; three diminutive sessile polyps in the transverse colon removed by cold snare technique; diminutive ascending colon 3 mm polyp removed by cold snare; small internal hemorrhoids without bleeding; small to medium external hemorrhoids without bleeding. Otherwise, normal colonoscopy. On that same day, she had an EGD that was normal. 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 The patient was noted to have [place] esophagitis. The patient has been on Xarelto, which was held last night. I have discussed with the patient and the patient's [id number] (per the patient's request) treatment care. When I called the [id number], the patient's son and other relatives were on the phone conference call. We discussed whether the patient should have her surgery this hospitalization or at a later date. The patient desired to have her surgery at a later date time to get over her bronchitis. The patient had a cardiac catheterization in 2015 that was normal. She has a pacemaker for left subclavian vein for sick sinus syndrome. Echocardiograms have been adequate in the past, seen by Dr. Galvan. The patient in May 2018 had a cardiac stress test, normal ejection fraction at 53% without ischemia. She has not had a CAT scan and she has not had a CEA level, both of which are ordered this hospitalization. Her renal function is normal. ALLERGIES: NONE. SOCIAL HISTORY: Tobacco; none. Alcohol; none. MEDICATIONS: Medications at home, she takes fluconazole 100 mg daily, Colace, multivitamins, nasal spray, aspirin 81 mg a day, omega-3 daily, Flonase nasal spray, digoxin 0.125 mg a day, metoprolol 25 mg b.i.d., Synthroid 112 mcg a.m., lansoprazole 30 mg b.i.d., furosemide 20 mg a.m., pravastatin 20 mg h.s., MiraLAX daily, Tylenol p.r.n. pain, Xarelto 20 mg at 1700, iron daily. PAST SURGICAL HISTORY: MediPort placed in 2016 for lymphoma; right total knee arthroplasty, Dr. Little, 01/14/2015; upper and lower endoscopies as noted above; thyroid surgery; bilateral hip replacement. PAST MEDICAL HISTORY: Sick sinus syndrome with pacemaker, left subclavian vein; history of lymphoma with MediPort, right subclavian vein; chronic atrial fibrillation, on Xarelto; hypothyroidism; cecal adenocarcinoma, recently diagnosed; chronic diastolic congestive heart failure; hypothyroidism; 2016, cardiac catheterization; 2018, cardiac stress test negative, normal ejection fraction. REVIEW OF SYSTEMS: Noncontributory. The patient lives alone, but lives next door to her son. Her [id number] and son are very involved in her care. The patient has some memory deficits. PHYSICAL EXAMINATION: VITAL SIGNS: Height 5 feet 5 inches; 185 pounds, 30 BMI; temperature 98.1; heart rate 94; respiratory rate 18; blood pressure 135/83. HEAD, EARS, EYES, NOSE, AND THROAT: Unremarkable. LUNGS: Clear to auscultation. CARDIAC: Regular rate and rhythm without murmur or gallop. ABDOMEN: Soft, nontender, obese. EXTREMITIES: Unremarkable. Chronic venous stasis. Palpable pulses. No ankle edema. LABORATORY DATA: Electrolytes; sodium 128, chloride 27, carbon dioxide 22, BUN . Hemoglobin 13.1, platelet count 90,000. ASSESSMENT AND PLAN: 1. Cecal cancer. Plan; laparoscopic right colectomy. She will undergo a bowel prep the day before with clear liquids and bowel prep. This will be called into her pharmacy. The surgery will be scheduled at a day to be determined by the patient and her family. I have talked to the patient's [id number] and son per telephone conference today and they will visit with the patient afternoon and they will call my office to select the day of her surgery in the next week or 2. The patient would like a week or two to get over her bronchitis, get her strength back. She will be on medications for hyponatremia. 2. Hyponatremia, now treated medically, improved from 118 to 132. Continue medical treatment. Recheck her electrolytes for surgery. 3. Sick sinus syndrome with pacemaker. 4. Normal cardiac catheterization, 2016; normal cardiac stress test, 2018, no need for further cardiac evaluation. 5. Chronic anticoagulation. Hold her Xarelto 2 days prior to her operation. 6. Mobility limited from knee problems. She will need perioperative physical therapy and walking program for mobility. Risks of surgery including infection, bleeding, reoperation, anastomotic leak were discussed. Questions answered. Job ID: [id number]
--- NOTE | 2018-10-02 15:30 | CT ---
CT ABDOMEN AND PELVIS WITH IV CONTRAST: INDICATIONS: An 83-year-old female with a history of cecal colon cancer evaluation. COMPARISON: Prior CT abdomen and pelvis, dated 07/30/2013, from [facility]. CT thorax, dated 05/07/2016. FINDINGS: Again seen is a prominent hiatal hernia. There is a blunted appearance of the left hepatic lobe, whi ch is nonspecific, but stable to the prior exam. No focal hepatic lesion is grossly evident. The pancreas, adrenal glands, and kidneys appear within normal limits. The spleen appears within normal limits. No free fluid or enlarged lymph nodes are evident. There is scattered vascular calcification involving the abdominal and pelvic vasculature. There is fluid density seen within the region of the rectum. There is a mild amount of retained stoo l within portions of the colon. The small bowel is of normal caliber. No definite enlarged lymph nodes are evident. The bladder appears within normal limits. The visuali zed aspects of the uterus and adnexa are unremarkable. There are speed scattered artifacts from bila teral total hip replacements slightly limits image detail. There is diffuse osteopenia. There is sc attered degenerative and osteoarthritic change. IMPRESSION: 1. No overt evidence to suggest regional or metastatic disease within the abdomen or pelvis. 2. Stable, slightly blunted appearance to the left hepatic lobe, which may reflect sequela of a part ial hepatectomy. Recommend correlation with the patient's surgical history. 3. Stable large hiatal hernia. 4. Mild amount of retained stool within the colon. 5. Fluid density seen at the level of the rectum, which can be seen with diarrheal states. Recommen d correlation. POS: [facility]
[2018-10-02] MEDS: Rivaroxaban 10 MG TAB PO SCH (16:33)
[2018-10-02] MEDS ORDERED: Clopidogrel Bisulfate 75 MG TAB ONE (17:25)
--- NOTE | 2018-10-02 19:11 | PDOC.PN ---
- Subjective Encounter Start Date: 10/02/18 Encounter Start Time: 14:30 Patient seen and examined for Gen weakness. Cough +. No other complaints. No overnight events - Objective Resuscitation Status - Order Detail: 09/29/18 17:26 Resuscitation Status Routine Resuscitation Status: FULL: Full Resuscitation Discussed with: patient MAR Reviewed: Yes Vital Signs & Weight: Vital Signs (12 hours) Temp Pulse Resp BP BP Pulse Ox 10/02/18 16:28 97.4 F L 85 18 139/79 98 10/02/18 13:09 95 18 95 10/02/18 12:21 98.8 F 68 18 138/63 96 10/02/18 09:14 94 18 95 10/02/18 08:40 83 10/02/18 07:15 98.1 F 83 16 135/83 93 L Weight Weight 185 lb 6.4 oz I&O: 10/01/18 10/02/18 10/03/18 06:59 06:59 06:59 Intake Total 1550 630 Output Total 3500 1050 Balance -1950 -420 Result Diagrams: 10/02/18 07:02 10/02/18 07:01 EKG Reviewed by me: Yes (Tele SR) Phys Exam - Physical Examination Constitutional: NAD Respiratory: no wheezing Scat rhonchi Cardiovascular: RRR, no rub Gastrointestinal: soft, non-tender, positive bowel sounds Musculoskeletal: edema present Neurological: moves all 4 limbs Dx/Plan - Plan IMPRESSION: Gen weakness - multifactorial 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 Cough - CXR today ?Pneumonia - suspected Pneumococcal Obesity BMI 31.2 Chr Afib - on Anticoag h/o Lymphoma GERD HTN Hypothyroidism Colon Ca Thrombocytopenia PLAN: Add Omnicef/Doxycycline Cont fluid restriction On Tolvaptan/Sodium chloride tabs Cont other meds as below Cont Nebs AM labs Review of Systems - Review of Systems Respiratory: negative: Cough, Dry, Shortness of Breath, Hemoptysis, SOB with Excertion, Pleuritic Pain, Sputum, Wheezing Cardiovascular: negative: chest pain, palpitations, orthopnea, paroxysmal nocturnal dyspnea, edema, light headedness, other - Medications/Allergies Allergies/Adverse Reactions: Allergies Allergy/AdvReac Type Severity Reaction Status Date / Time No Known Allergies Allergy Verified 09/19/18 14:11 Medications: Current Medications Acetaminophen (Tylenol) 650 mg PO Q4H PRN PRN Reason: Headache/Fever/Mild Pain (1-3) Albuterol/Ipratropium (Duoneb) 3 ml NEB Q6H PRN PRN Reason: SOB &/or Wheezing Last Admin: 10/02/18 09:14 Dose: 3 ml Albuterol/Ipratropium (Duoneb) 3 ml NEB [id number] [facility] Last Admin: 10/02/18 13:09 Dose: 3 ml Aspirin (Aspirin Chewable) 81 mg PO DAILY [facility] Last Admin: 10/02/18 08:40 Dose: 81 mg Bisacodyl (Dulcolax) 10 mg PO DAILYPRN PRN PRN Reason: Constipation Digoxin (Lanoxin) 0.125 mg PO QAM [facility] Last Admin: 10/02/18 08:40 Dose: 0.125 mg Ferrous Sulfate (Feosol) 325 mg PO DAILY [facility] Last Admin: 10/02/18 08:41 Dose: 325 mg Guaifenesin (Mucinex) 600 mg PO Q12HR [facility] Last Admin: 10/02/18 08:41 Dose: 600 mg Guaifenesin (Robitussin Sf) 200 mg PO Q4H PRN PRN Reason: Cough Last Admin: 10/02/18 06:10 Dose: 200 mg Levothyroxine Sodium (Synthroid) 112 mcg PO 0600 [facility] Last Admin: 10/02/18 05:10 Dose: 112 mcg Metoprolol Tartrate (Lopressor) 25 mg PO BID [facility] Last Admin: 10/02/18 08:42 Dose: 25 mg Pravastatin Sodium (Pravachol) 20 mg PO HS [facility] Last Admin: 10/01/18 21:04 Dose: 20 mg Rivaroxaban (Xarelto) 20 mg PO 1700 [facility] Last Admin: 10/02/18 16:33 Dose: 20 mg Sodium Chloride (Flush - Normal Saline) 10 ml IVF Q12HR [facility] Last Admin: 10/02/18 10:12 Dose: 10 ml Sodium Chloride (Flush - Normal Saline) 10 ml IVF PRN PRN PRN Reason: Saline Flush Sodium Chloride (Sodium Chloride) 1 gm PO BID [facility] Last Admin: 10/02/18 10:12 Dose: 1 gm Tolvaptan (Samsca) 15 mg PO DAILY [facility] Last Admin: 10/02/18 10:12 Dose: 15 mg
--- NOTE | 2018-10-02 19:42 | CON ---
DATE OF CONSULTATION: 10/02/2018 REASON FOR CONSULTATION: Preoperative evaluation. HISTORY OF PRESENT ILLNESS: Ms. Welch is a pleasant 83-year-old white female, whom I am being asked to do a preoperative evaluation as she will need a colon resection as she was recently diagnosed with an invasive well-differentiated adenocarcinoma of the cecum. Dr. Mitchell is scheduled to do a colectomy in the near future. I am being asked to give her preoperative evaluation. Ms. Welch denies any chest pain, tightness, or pressure. No shortness of breath. She has been battling lymphoma. For this, has a port and has had surgery in the recent past. 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 She was started on tolvaptan by Dr. Godinez and her sodium is slowly improving. Otherwise, no other issues at this time. PAST MEDICAL HISTORY: 1. Mild coronary artery disease with a heart catheterization back in 2015 showing no significant coronary artery disease. 2. Sick sinus syndrome, status post pacemaker placement by Dr. Hicks in 2016. 3. Lymphoma. 4. Recent diagnosis of adenocarcinoma. 5. Chronic atrial fibrillation, on chronic anticoagulation. 6. Hypothyroidism. 7. Hyperlipidemia. 8. Osteoarthritis. 9. Diastolic heart failure. PAST SURGICAL HISTORY: 1. Thyroid resection. 2. Right knee surgery. 3. Bilateral hip replacements. 4. MediPort placement. OUTPATIENT MEDICATIONS: Include; 1. Fluconazole. 2. Sennoside. 3. Multivitamin daily. 4. Azelastine nasal spray. 5. Aspirin 81 a day. 6. [place]-3 fish oil. 7. Flonase. 8. Digoxin 0.125 daily. 9. Metoprolol tartrate 25 mg b.i.d. 10. Levothyroxine 112 mcg a day. 11. Lansoprazole 30 mg b.i.d. 12. Lasix 20 mg q.a.m. 13. Pravastatin 20 mg at bedtime. 14. MiraLAX. 15. Tylenol extra-strength p.r.n. 16. Xarelto 20 mg a day. 17. Iron supplements. ALLERGIES: NO KNOWN DRUG ALLERGIES. FAMILY HISTORY: Mother with colon cancer. Father with heart disease. SOCIAL HISTORY: No alcohol, tobacco, or drugs. REVIEW OF SYSTEMS: A 12-point review of systems was done and was found to be negative unless stated in the history of present illness. PHYSICAL EXAMINATION: VITAL SIGNS: Temperature 97.4, pulse 85, respiratory rate 18, sat 98% on room air, and blood pressure 139/79. GENERAL: Awake, alert, and oriented x3. No distress. HEENT: Normocephalic, atraumatic. NECK: Supple. LUNGS: Clear. CARDIOVASCULAR: S1 and S2. No S3 or S4. No murmurs or rubs. ABDOMEN: Soft. Positive bowel sounds. EXTREMITIES: No edema. SKIN: Warm and dry. LABORATORY DATA: Laboratory work was reviewed. Her sodium was 119 on admission, it is up to about 132 yesterday, 128 this morning. BNP was 249. Otherwise, rest of metabolic profile was unremarkable. CBC is unremarkable. Hemoglobin is stable at 13 and 14. ASSESSMENT: 1. Preoperative evaluation. 2. Hyponatremia. 3. Mild coronary artery disease. 4. Chronic atrial fibrillation. 5. Tachycardia-bradycardia syndrome. 6. Status post pacemaker placement. 7. Chronic anticoagulation with Xarelto. PLAN: 1. Ms. Welch is at intermediate risk for intermediate risk procedure. May proceed with hemicolectomy or whatever abdominal surgery is required for her adenocarcinoma of the cecum. 2. Hold Xarelto 2 or 3 days prior to surgery and then restart once safe from the surgical perspective. Thank you for letting me to participate in the care of your patient. We will sign off. Please call with any questions. Job ID: [id number]
[2018-10-02] MEDS: Doxycycline 100 MG CAP PO SCH (20:00)
[2018-10-02] MEDS: Cefdinir 300 MG CAP PO SCH (20:00)
[2018-10-02] MEDS: Pravastatin Sodium 20 MG TAB PO SCH (20:01)
[2018-10-03] MEDS: Levothyroxine Sodium 112 MCG TAB PO SCH (04:57)
[2018-10-03 06:58] LABS: Hemoglobin 12.9 g/dL (12.0-16.0); Platelet Count 99 thou/uL (130-400)
[2018-10-03 07:24] LABS: Anion Gap 11 mmol/L (10-20); BUN (Urea Nitrogen) 9 mg/dL (9.8-20.1); Calc. Creatinine Clearance 87 mL/min (70-130); Calcium 9.3 mg/dL (7.8-10.44); Carbon Dioxide 23 mmol/L (23-31); Chloride 100 mmol/L (98-107); Estimated GFR-MDRD 84; Glucose 105 mg/dL (83-110); Magnesium 1.8 mg/dL (1.6-2.6); Potassium 3.7 mmol/L (3.5-5.1); Sodium 130 mmol/L (136-145)
[2018-10-03] MEDS: Cefdinir 300 MG CAP PO SCH ×2 (09:25→20:55)
[2018-10-03] MEDS: Sodium Chloride 1 GM TAB PO SCH ×2 (09:25→20:55)
[2018-10-03] MEDS: Ferrous Sulfate 325 MG TAB PO SCH (09:25)
[2018-10-03] MEDS: Saccharomyces boulardii 250 MG CAP PO SCH (09:25)
[2018-10-03] MEDS: Digoxin 0.125 MG TAB PO SCH (09:25)
[2018-10-03] MEDS: guaiFENesin ER 600 MG TAB PO SCH ×2 (09:25→20:56)
[2018-10-03] MEDS: Doxycycline 100 MG CAP PO SCH ×2 (09:25→20:55)
[2018-10-03] MEDS: Aspirin Chewable 81 MG TAB PO SCH (09:26)
[2018-10-03] MEDS: Metoprolol Tartrate 25 MG TAB PO SCH ×2 (09:26→20:56)
--- NOTE | 2018-10-03 09:38 | PRG ---
DATE OF SERVICE: 10/03/2018 SUBJECTIVE: Ms. Welch is an 83-year-old white female, who was seen by the Renal Service for her hyponatremia secondary to SIADH. She was given a dose of tolvaptan yesterday. I also started her on sodium chloride. Serum sodium is improved today at 130. No other new complaints. She has a known history of colon carcinoma and is scheduled for elective surgery. No other complaints today. OBJECTIVE: VITAL SIGNS: Blood pressure 118/60, heart rate 67, respiratory rate 22, temperature 97.5, and pulse ox 97%. GENERAL: Awake, alert, comfortable, not in distress. SKIN: Adequate turgor. HEENT: She has pinkish conjunctivae. Anicteric sclerae. No neck mass. No carotid bruits. No JVD. LUNGS: Harsh breath sounds. HEART: Normal sinus rhythm. No murmurs, gallops, or rubs. ABDOMEN: Globular, soft, nontender. No masses. EXTREMITIES: No edema. No deformities. MEDICATIONS: Medications of October 03, 2018, reviewed. LABORATORY DATA: Laboratories of October 03, 2018, hemoglobin 12.9. Sodium 130, potassium 3.7, chloride is 100, carbon dioxide 23, BUN 11, creatinine 9, glucose 105. CEA 4.82. ASSESSMENT AND PLAN: 1. Hyponatremia secondary to SIADH, much improved. Continue free water restriction. Continue sodium chloride tablets. Tolvaptan only on a p.r.n. basis. 2. No indication for any hypertonic saline. 3. Colon cancer-eventual elective surgery/colon resection. 4. Overall agree with current management. Job ID: [id number]
--- NOTE | 2018-10-03 10:04 | PRG ---
DATE OF SERVICE: 10/03/2018 Anjali Welch is doing well today. She has a cecal cancer. The patient's CAT scan of abdomen and pelvis is normal. There is no evidence of metastasis. Her CEA level is normal. Her hemoglobin is normal. The patient feels much better today. Her chest x-ray is stable. I have spoken with the patient and the patient's [id number] and son. They will call me when they are ready to schedule her laparoscopic right colectomy. We will plan this in the next week or 2 per the family's schedule calendar. I will see her as needed in this hospitalization and we will await family's contact. Job ID: [id number]
--- NOTE | 2018-10-03 14:36 | PDOC.PN ---
- Subjective Encounter Start Date: 10/03/18 Encounter Start Time: 11:30 Patient seen and examined for Gen weakness/Hyponatremia. Feels better, No new complaints. No overnight events - Objective Resuscitation Status - Order Detail: 09/29/18 17:26 Resuscitation Status Routine Resuscitation Status: FULL: Full Resuscitation Discussed with: patient MAR Reviewed: Yes Vital Signs & Weight: Vital Signs (12 hours) Temp Pulse Resp BP Pulse Ox 10/03/18 13:01 75 18 93 L 10/03/18 09:25 67 10/03/18 08:11 67 16 96 10/03/18 08:00 97.9 F 90 17 138/76 96 10/03/18 04:00 97.5 F L 67 22 H 118/60 97 Weight Weight 187 lb 4.8 oz I&O: 10/02/18 10/03/18 10/04/18 06:59 06:59 06:59 Intake Total 630 720 Output Total 1050 2550 Balance -420 -1830 Result Diagrams: 10/03/18 06:36 10/03/18 06:36 EKG Reviewed by me: Yes (Tele Afib) Phys Exam - Physical Examination Constitutional: NAD Respiratory: no wheezing, no rhonchi Cardiovascular: RRR, no rub Gastrointestinal: soft, non-tender, positive bowel sounds Musculoskeletal: no edema Neurological: moves all 4 limbs Dx/Plan - Plan IMPRESSION: Gen weakness - multifactorial 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 Will arrange [facility] Review of Systems - Review of Systems Respiratory: Cough, Dry. negative: Shortness of Breath, Hemoptysis, SOB with Excertion, Pleuritic Pain, Sputum, Wheezing Cardiovascular: negative: chest pain, palpitations, orthopnea, paroxysmal nocturnal dyspnea, edema, light headedness, other Gastrointestinal: negative: Nausea, Vomiting, Abdominal Pain, Diarrhea, Constipation, Melena, Hematochezia, Other - Medications/Allergies Allergies/Adverse Reactions: Allergies Allergy/AdvReac Type Severity Reaction Status Date / Time No Known Allergies Allergy Verified 09/19/18 14:11 Medications: Current Medications Acetaminophen (Tylenol) 650 mg PO Q4H PRN PRN Reason: Headache/Fever/Mild Pain (1-3) Albuterol/Ipratropium (Duoneb) 3 ml NEB Q6H PRN PRN Reason: SOB &/or Wheezing Last Admin: 10/02/18 09:14 Dose: 3 ml Albuterol/Ipratropium (Duoneb) 3 ml NEB S1AM-QG [facility] Last Admin: 10/03/18 13:01 Dose: 3 ml Aspirin (Aspirin Chewable) 81 mg PO DAILY [facility] Last Admin: 10/03/18 09:26 Dose: 81 mg Bisacodyl (Dulcolax) 10 mg PO DAILYPRN PRN PRN Reason: Constipation Cefdinir (Omnicef) 300 mg PO BID [facility] Last Admin: 10/03/18 09:25 Dose: 300 mg Digoxin (Lanoxin) 0.125 mg PO QAM [facility] Last Admin: 10/03/18 09:25 Dose: 0.125 mg Doxycycline Hyclate (Vibramycin) 100 mg PO BID [facility] Last Admin: 10/03/18 09:25 Dose: 100 mg Ferrous Sulfate (Feosol) 325 mg PO DAILY [facility] Last Admin: 10/03/18 09:25 Dose: 325 mg Guaifenesin (Mucinex) 600 mg PO Q12HR [facility] Last Admin: 10/03/18 09:25 Dose: 600 mg Guaifenesin (Robitussin Sf) 200 mg PO Q4H PRN PRN Reason: Cough Last Admin: 10/02/18 06:10 Dose: 200 mg Levothyroxine Sodium (Synthroid) 112 mcg PO 0600 [facility] Last Admin: 10/03/18 04:57 Dose: 112 mcg Metoprolol Tartrate (Lopressor) 25 mg PO BID [facility] Last Admin: 10/03/18 09:26 Dose: 25 mg Pravastatin Sodium (Pravachol) 20 mg PO HS [facility] Last Admin: 10/02/18 20:01 Dose: 20 mg Rivaroxaban (Xarelto) 20 mg PO 1700 [facility] Last Admin: 10/02/18 16:33 Dose: 20 mg Saccharomyces Boulardii (Florastor) 250 mg PO DAILY [facility] Last Admin: 10/03/18 09:25 Dose: 250 mg Sodium Chloride (Flush - Normal Saline) 10 ml IVF Q12HR [facility] Last Admin: 10/03/18 09:26 Dose: 10 ml Sodium Chloride (Flush - Normal Saline) 10 ml IVF PRN PRN PRN Reason: Saline Flush Sodium Chloride (Sodium Chloride) 1 gm PO BID [facility] Last Admin: 10/03/18 09:25 Dose: 1 gm
--- NOTE | 2018-10-03 14:54 | PDOC.EVN ---
Event Note - Event Note Event Note: Family requesting SNF vs Rehab placement. Will hold dc and start SNF eval
[2018-10-03] MEDS: Rivaroxaban 10 MG TAB PO SCH (16:37)
[2018-10-03] MEDS: Pravastatin Sodium 20 MG TAB PO SCH (20:56)
[2018-10-03] MEDS: Diabetic Tussin 200 MG/10 ML UDCUP PO PRN (23:11)
[2018-10-04] MEDS: Levothyroxine Sodium 112 MCG TAB PO SCH (05:21)
[2018-10-04 06:52] LABS: Anion Gap 9 mmol/L (10-20); BUN (Urea Nitrogen) 10 mg/dL (9.8-20.1); Calc. Creatinine Clearance 88 mL/min (70-130); Calcium 9.1 mg/dL (7.8-10.44); Carbon Dioxide 26 mmol/L (23-31); Chloride 100 mmol/L (98-107); Estimated GFR-MDRD 87; Glucose 103 mg/dL (83-110); Potassium 3.8 mmol/L (3.5-5.1); Sodium 131 mmol/L (136-145)
[2018-10-04] MEDS: Metoprolol Tartrate 25 MG TAB PO SCH (08:35)
[2018-10-04] MEDS: Digoxin 0.125 MG TAB PO SCH (08:35)
[2018-10-04] MEDS: Saccharomyces boulardii 250 MG CAP PO SCH (08:35)
[2018-10-04] MEDS: guaiFENesin ER 600 MG TAB PO SCH (08:35)
[2018-10-04] MEDS: Cefdinir 300 MG CAP PO SCH (08:35)
[2018-10-04] MEDS: Ferrous Sulfate 325 MG TAB PO SCH (08:36)
[2018-10-04] MEDS: Aspirin Chewable 81 MG TAB PO SCH (08:36)
[2018-10-04] MEDS: Sodium Chloride 1 GM TAB PO SCH (09:53)
[2018-10-04] MEDS: Doxycycline 100 MG CAP PO SCH (09:53)
[2018-10-04] MEDS ORDERED: Acetaminophen 325 MG TAB PO PRN (12:13)
[2018-10-04 14:53] VITALS: BP 141/71; TEMP 97.4
--- NOTE | 2018-10-04 15:17 | DIS ---
DATE OF ADMISSION: 09/29/2018 DATE OF DISCHARGE: 10/04/2018 DISCHARGE DISPOSITION: Inpatient rehabilitation. The patient was seen on the day of discharge. Denies any new complaints. No chest pain, shortness of breath, palpitations. DISCHARGE MEDICATION: 1. Omnicef 300 mg b.i.d. for next 5 days. 2. Doxycycline 100 mg b.i.d. for next 5 days. 3. Florastor 250 mg daily. 4. Potassium chloride 1 g b.i.d. 5. Mucinex 600 mg b.i.d. 6. Aspirin 81 mg daily. 7. Xarelto 20 mg daily. 8. Pravastatin 20 mg at bedtime. 9. MiraLAX 17 g at bedtime. 10. Multivitamin one tablet daily. 11. Lopressor 25 mg b.i.d. 12. Levothyroxine 112 mcg daily. 13. Lansoprazole 30 mg b.i.d. 14. Iron 27 mg daily. 15. Flonase 2 spray as needed. 16. Digoxin 0.125 mg daily. 17. Azelastine nasal spray twice a day. 18. Tylenol as needed. ALLERGIES: NO KNOWN DRUG ALLERGIES. BRIEF HOSPITAL COURSE: The patient is an 83-year-old female with lymphoma and recent diagnosis of colon cancer, presented to the emergency room with generalized weakness. She was found to have sodium of 119. Please refer to the history and physical for further details. The patient was admitted to the hospital with a diagnosis of generalized weakness. Hyponatremia was felt secondary to SIADH. A urine osmolality was 331 with a urine sodium of 45. Serum osmolality was 244. She was started on fluid restriction. Later on, sodium chloride tablets along with tolvaptan was started by Dr. Godinez. Per family's request, the patient was also evaluated by General Surgery and Cardiology for possible surgical intervention for cecal cancer. A CT scan of the abdomen was done that was within normal limits. CEA level was normal. There was no evidence of metastasis on the CT scan. Sodium on the day of discharge is 131. Plan of care was discussed with the patient in detail. She stated understanding. Repeat labs after 1 week is recommended to follow up on the sodium as well as platelets. FINAL DIAGNOSES: 1. Generalized weakness, multifactorial. 2. 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 3. Persistent cough with negative chest x-ray. She probably has bronchitis versus pneumonia, questionable pneumococcal. Antibiotics have been started. 4. Obesity with a body mass index of 31.2. 5. Chronic atrial fibrillation. 6. History of lymphoma. 7. Gastroesophageal reflux disease. 8. Hypertension. 9. Hypothyroidism. 10. Colon cancer. 11. Thrombocytopenia. TIME SPENT: Total time coordinating the discharge of this patient was 33 minutes. Job ID: [id number]
== END 2018-10-04 15:27 | DRG 643 ==
LOC: ERS 13:40 → T4-B 17:16 → 2NO 18:39 → T4-B 10-03 23:00
PROVIDERS: ADMIT Internal Medicine; ATTEND Internal Medicine
DX: E22.2 Syndrome of inappropriate secretion of antidiuretic hormone (principal); J13 Pneumonia due to Streptococcus pneumoniae; C18.0 Malignant neoplasm of cecum; I50.32 Chronic diastolic (congestive) heart failure; J44.1 Chronic obstructive pulmonary disease with (acute) exacerbation; J44.0 Chronic obstructive pulmonary disease with (acute) lower respiratory infection; J40 Bronchitis, not specified as acute or chronic; I49.5 Sick sinus syndrome; I25.10 Atherosclerotic heart disease of native coronary artery without angina pectoris; E66.9 Obesity, unspecified; I48.2 Chronic atrial fibrillation; K21.9 Gastro-esophageal reflux disease without esophagitis; E03.9 Hypothyroidism, unspecified; D69.6 Thrombocytopenia, unspecified; E78.5 Hyperlipidemia, unspecified; M19.90 Unspecified osteoarthritis, unspecified site; I11.0 Hypertensive heart disease with heart failure; Z95.0 Presence of cardiac pacemaker; Z79.01 Long term (current) use of anticoagulants; Z85.72 Personal history of non-Hodgkin lymphomas; Z68.31 Body mass index [BMI] 31.0-31.9, adult; Z79.82 Long term (current) use of aspirin; Z79.899 Other long term (current) drug therapy
CPT/HCPCS: 36415; 36416; 71046; 74177; 80048; 81003; 81015; 82378; 82436; 82533; 82570; 83735; 83880; 83930; 83935; 84133; 84300; 84443; 84550; 85014; 85018; 85025; 85049; 94640; 96360; J7620; Q9966; Q9967

== ENCOUNTER 2018-10-24 07:32 | Inpatient (IN) | payer MEDICARE ==
[2018-10-24] MEDS ORDERED: Meropenem 2 GM in Sodium Chloride 0.9% 100 ML IVPB SCH (10:30)
[2018-10-24 10:39] LABS: #Eosinphils 0.1 thou/uL (0.0-0.7); #Lymphocytes 1.7 thou/uL (1.20-3.40); #Monocytes 0.8 thou/uL (0.11-0.59); #Neutrophils 5.4 thou/uL (1.40-6.50); %Basophils 0.5 % (0.0-1.0); %Eosinophils 1.4 % (0.0-10.0); %Lymphocytes 20.5 % (21.0-51.0); %Monocytes 10.4 % (0.0-10.0); %Neutrophils 67.3 % (42.0-75.0); Hemoglobin 14.3 g/dL (12.0-16.0); Hemoglobin A1c 5.6 % (4.0-6.0); Mean Corpuscular HGB CONC 33.5 g/dL (32.0-36.0); Mean Corpuscular Volume 92.5 fL (78.0-98.0); Mean Platelet Volume 9.4 fL (7.4-10.4); Platelet Count 103 thou/uL (130-400); RBC Distribution Width 13.5 % (11.5-14.5); Red Blood Cell (RBC) Count 4.62 mill/uL (4.20-5.40); White Blood Cell (WBC) Count 8.1 thou/uL (4.8-10.8)
[2018-10-24] MEDS ORDERED: Fentanyl 100 MCG/2 ML VIAL ONE ×2 (10:45→11:29)
[2018-10-24] MEDS ORDERED: Midazolam HCl 2 mg/2 ml Vial ONE (10:45)
[2018-10-24] MEDS ORDERED: Dexamethasone 4 mg/ml Vial ONE (10:45)
[2018-10-24 10:50] LABS: Anion Gap 14 mmol/L (10-20); BUN (Urea Nitrogen) 6 mg/dL (9.8-20.1); Calc. Creatinine Clearance 0 mL/min (70-130); Calcium 9.7 mg/dL (7.8-10.44); Carbon Dioxide 25 mmol/L (23-31); Chloride 99 mmol/L (98-107); Estimated GFR-MDRD 75; Glucose 98 mg/dL (83-110); Sodium 134 mmol/L (136-145)
[2018-10-24] MEDS ORDERED: Ketorolac Tromethamine 30 MG/ML VIAL ONE (10:53)
[2018-10-24] MEDS ORDERED: Indocyanine Green 25 MG/10 ML VIAL ONE (11:20)
[2018-10-24] MEDS ORDERED: Bupivacaine/Epinephrine 0.25% 30 ML VIAL ONE (11:20)
[2018-10-24] MEDS ORDERED: Lidocaine 2% Jelly 5 ML TUBE ONE (11:29)
[2018-10-24] MEDS ORDERED: Phenylephrine HCL 10 MG/ML VIAL ONE (11:30)
[2018-10-24] MEDS ORDERED: PHENYLEPHRINE-NS 100 MCG/ML 10 ML SYRINGE ONE (13:34)
[2018-10-24] MEDS ORDERED: PROPOFOL 200 MG/20 ML VIAL ONE (13:34)
[2018-10-24] MEDS ORDERED: Ondansetron PF 4 MG/2 ML Vial ONE (13:34)
[2018-10-24] MEDS ORDERED: Glycopyrrolate 0.2 MG/ML 5 ML SYRINGE ONE (13:34)
[2018-10-24] MEDS ORDERED: ePHEDrine 50 MG/ML VIAL ONE (13:34)
[2018-10-24] MEDS ORDERED: Lidocaine 1% PF 5 ML VIAL ONE (13:34)
[2018-10-24] MEDS ORDERED: Rocuronium Bromide 10 MG/ML (10ML VIAL) ONE (13:34)
[2018-10-24] MEDS ORDERED: Dexamethasone 20 MG/5 ML VIAL ONE (13:34)
[2018-10-24] MEDS ORDERED: Ondansetron PF 4 MG/2 ML Vial IVP PRN (15:35)
[2018-10-24] MEDS ORDERED: hydrALAZINE 20 MG/ML VIAL SLOW IVP PRN (15:35)
[2018-10-24] MEDS ORDERED: Morphine 4 MG/ML VIAL SLOW IVP PRN ×2 (15:35)
[2018-10-24] MEDS ORDERED: traMADol HCl 50 MG TAB PO PRN (15:38)
[2018-10-24] MEDS ORDERED: Fluticasone Propionate Nasal Spray 16 gm Bottle NASAL PRN (15:40)
[2018-10-24] MEDS ORDERED: Ketorolac Tromethamine 30 MG/ML VIAL IVP PRN (15:41)
[2018-10-24] MEDS ORDERED: Promethazine HCl 25 MG/ML VIAL IM PRN (15:41)
[2018-10-24] MEDS ORDERED: Morphine Sulfate 2 MG/ML SYRINGE SLOW IVP PRN (15:41)
[2018-10-24] MEDS ORDERED: Meperidine HCl/PF 25 MG/ML VIAL SLOW IVP PRN (15:41)
[2018-10-24] MEDS ORDERED: Ondansetron HCl/PF 4 MG/2 ML Vial IVP PRN (15:41)
[2018-10-24] MEDS ORDERED: SUGAMMADEX SODIUM 200 MG/2 ML VIAL ONE (15:43)
[2018-10-24] MEDS ORDERED: Bupivacaine HCl 0.5%/Epinephrine 1:200,000/PF 30 ml Vial ONE (16:13)
[2018-10-24] MEDS: Sodium Chloride 0.9% 1,000 ML IV SCH (18:43)
[2018-10-24] MEDS: Acetaminophen 1,000 MG in Premix Bag 1 BAG IVPB SCH ×2 (18:44→23:45)
[2018-10-24] MEDS: Ketorolac Tromethamine 30 MG/ML VIAL IVP SCH ×2 (18:44→23:46)
[2018-10-24] MEDS ORDERED: Enoxaparin Sodium 40 MG/0.4 ML SYRINGE SC SCH (21:00)
--- NOTE | 2018-10-24 21:29 | OP ---
DATE OF PROCEDURE: 10/24/2018 PREOPERATIVE DIAGNOSIS: Cecal cancer. POSTOPERATIVE DIAGNOSIS: Cecal cancer. PROCEDURE PERFORMED: Robot laparoscopic right colectomy. ANESTHESIA: General, TAP block, local 10 mL 0.5% Marcaine with epinephrine. DESCRIPTION OF PROCEDURE: The patient was taken to the operating room where under general anesthesia, Hartmann catheter was placed at the beginning of the procedure and removed at the end. Abdomen was prepared with ChloraPrep and draped in routine fashion. Left subcostal incision made, pneumoperitoneum to 15 mmHg obtained with a Veress needle, replaced it with the 8 port. Left paraumbilical incision was made and an 11 port was placed for the robot camera arm. Left lower quadrant incision was made and an 8 mm port was placed. Left lateral mid abdominal incision was made and an 11 port was placed. The robot was docked, robot connected to the port sites and robot colectomy undertaken mobilizing the over the ileocolic vessels identifying the pedicle, doubly burned it with the Endo Seal and dividing it. Dissection down to the terminal ileum, 4 inches from the ileocecal valve and up toward the proximal transverse colon, carried out using hot scissors. Careful dissection revealed the duodenum kept free of harm during the dissection. Right colon was mobilized from its lateral attachments. Hepatic flexure taken down with medial and lateral approach using hot scissors and Endo Seal. Once this was accomplished and the colon mobilized, the proximal transverse colon divided with a blue load stapler, the terminal ileum divided with a blue load stapler, and the colon left in the right abdomen. Also peristaltic anastomosis created with ileal colonic anastomosis with a single fire of the 45 blue load stapler, closing the enterotomy with to and fro sutures of 2-0 V-Loc. There was some bleeding at the periumbilical port site left and for this reason, this was used as the extraction site and a lateral incision was made, carried down to skin and subcutaneous tissue, anterior fascia, posterior fascia dissected free. Wound protector applied over an instrument which had been used to grasp the terminal ileum. Once the wound protector was placed, colon was removed and colon mass palpated in the cecum. Once this was accomplished, the posterior fascia was closed with continuous suture of #1 PDS, anterior fascia with interrupted [id number] sutures of #1 PDS. No active bleeding was seen at this point. Skin and subcutaneous tissues irrigated and good hemostasis was then noted and pneumoperitoneum reduced, all instruments were removed, and all skin incisions were approximated with a subdermal 4-0 Monocryl and [place] glue applied. Job ID: [id number]
[2018-10-24] MEDS: Metoprolol Tartrate 25 MG TAB PO SCH (21:41)
[2018-10-24] MEDS: Famotidine 20 MG TAB PO SCH (21:41)
[2018-10-24] MEDS: Famotidine/PF 20 mg/2ml Vial SLOW IVP SCH (21:45)
[2018-10-25 01:32] VITALS: BMI 30.8
[2018-10-25] MEDS ORDERED: Sodium Chloride 0.9% 500 ML IVPB SCH (02:00)
[2018-10-25] MEDS: Sodium Chloride 0.9% 1,000 ML IV SCH ×6 (02:07→21:59)
[2018-10-25 02:46] LABS: #Lymphocytes 1.1 thou/uL (1.20-3.40); #Monocytes 0.8 thou/uL (0.11-0.59); #Neutrophils 13.8 thou/uL (1.40-6.50); %Basophils 0.1 % (0.0-1.0); %Eosinophils 0.1 % (0.0-10.0); %Lymphocytes 6.8 % (21.0-51.0); %Neutrophils 88.1 % (42.0-75.0); Hemoglobin 9.9 g/dL (12.0-16.0); Mean Corpuscular HGB CONC 33.4 g/dL (32.0-36.0); Mean Corpuscular Hemoglobin 31.3 pg (27.0-31.0); Mean Corpuscular Volume 93.9 fL (78.0-98.0); Mean Platelet Volume 9.5 fL (7.4-10.4); Platelet Count 84 thou/uL (130-400); RBC Distribution Width 13.4 % (11.5-14.5); Red Blood Cell (RBC) Count 3.17 mill/uL (4.20-5.40); White Blood Cell (WBC) Count 15.7 thou/uL (4.8-10.8)
[2018-10-25 03:11] LABS: Anion Gap 14 mmol/L (10-20); BUN (Urea Nitrogen) 10 mg/dL (9.8-20.1); Calc. Creatinine Clearance 85 mL/min (70-130); Calcium 8.4 mg/dL (7.8-10.44); Carbon Dioxide 20 mmol/L (23-31); Chloride 105 mmol/L (98-107); Estimated GFR-MDRD 80; Glucose 185 mg/dL (83-110); Potassium 4.3 mmol/L (3.5-5.1); Sodium 135 mmol/L (136-145)
[2018-10-25] MEDS: Acetaminophen 1,000 MG in Premix Bag 1 BAG IVPB SCH ×2 (05:24→14:44)
[2018-10-25] MEDS: Ketorolac Tromethamine 30 MG/ML VIAL IVP SCH ×2 (05:25→14:45)
[2018-10-25] MEDS: Levothyroxine Sodium 112 MCG TAB PO SCH (05:25)
[2018-10-25 07:27] LABS: #Eosinphils 0.1 thou/uL (0.0-0.7); #Lymphocytes 0.9 thou/uL (1.20-3.40); #Monocytes 0.8 thou/uL (0.11-0.59); #Neutrophils 11.4 thou/uL (1.40-6.50); %Basophils 0.1 % (0.0-1.0); %Eosinophils 0.5 % (0.0-10.0); %Lymphocytes 6.7 % (21.0-51.0); %Monocytes 5.8 % (0.0-10.0); %Neutrophils 86.9 % (42.0-75.0); Hemoglobin 9.2 g/dL (12.0-16.0); Mean Corpuscular HGB CONC 33.2 g/dL (32.0-36.0); Mean Corpuscular Hemoglobin 31.2 pg (27.0-31.0); Mean Corpuscular Volume 94.2 fL (78.0-98.0); Mean Platelet Volume 9.8 fL (7.4-10.4); Platelet Count 81 thou/uL (130-400); RBC Distribution Width 13.5 % (11.5-14.5); Red Blood Cell (RBC) Count 2.93 mill/uL (4.20-5.40); White Blood Cell (WBC) Count 13.1 thou/uL (4.8-10.8)
[2018-10-25] MEDS: Metoprolol Tartrate 25 MG TAB PO SCH ×2 (10:37→20:52)
[2018-10-25] MEDS: Famotidine/PF 20 mg/2ml Vial SLOW IVP SCH ×2 (10:37→22:00)
[2018-10-25] MEDS: Famotidine 20 MG TAB PO SCH ×2 (10:39→20:51)
[2018-10-25] MEDS: Digoxin 0.125 MG TAB PO SCH (10:39)
[2018-10-25 11:33] LABS: #Lymphocytes 0.8 thou/uL (1.20-3.40); #Monocytes 1.3 thou/uL (0.11-0.59); #Neutrophils 12.3 thou/uL (1.40-6.50); %Basophils 0.1 % (0.0-1.0); %Lymphocytes 5.5 % (21.0-51.0); %Monocytes 8.9 % (0.0-10.0); %Neutrophils 85.4 % (42.0-75.0); Hemoglobin 9.1 g/dL (12.0-16.0); Mean Corpuscular Hemoglobin 31.4 pg (27.0-31.0); Mean Corpuscular Volume 95.2 fL (78.0-98.0); Mean Platelet Volume 9.5 fL (7.4-10.4); Platelet Count 80 thou/uL (130-400); RBC Distribution Width 13.8 % (11.5-14.5); Red Blood Cell (RBC) Count 2.88 mill/uL (4.20-5.40); White Blood Cell (WBC) Count 14.4 thou/uL (4.8-10.8)
[2018-10-25] MEDS: traMADol HCl 50 MG TAB PO PRN (14:08)
--- NOTE | 2018-10-25 14:52 | PRG ---
DATE OF SERVICE: 10/25/2018 SUBJECTIVE: Anjali Welch is doing well today. OBJECTIVE: VITAL SIGNS: Temperature 97.5, pulse 74, blood pressure 114/66. The patient did have GI bleeding in the wee hours of the morning. Her hemoglobin dropped from a preoperative 14 till to 9.9. Checked in the middle of night and her blood pressure improved from the systolic 80s to 90s with fluid bolus, and has been stabilized after 1 unit of blood. Her hemoglobin at 11 a.m. this morning was 9.1. The patient has been able to ambulate without orthostatic symptoms. She has voided a small amount. Her renal function remains normal. LUNGS: Clear to auscultation. CARDIAC: Regular rate and rhythm without murmur or gallop. ABDOMEN: Soft. Good bowel sounds. Incision is well healed. ASSESSMENT AND PLAN: The patient is doing well. Postoperative gastrointestinal bleeding probably from the ileocolonic anastomosis. Her Lovenox has been discontinued. We will, in addition, stop her Toradol. Pathology is pending. Monitor H and H throughout the day and in the morning. Hopefully, she will be able to be discharged home tomorrow pending clinical course. Job ID: [id number]
[2018-10-25] MEDS: Aspirin Chewable 81 MG TAB PO SCH (16:27)
[2018-10-25 16:31] LABS: #Lymphocytes 1.2 thou/uL (1.20-3.40); #Monocytes 1.3 thou/uL (0.11-0.59); #Neutrophils 14.7 thou/uL (1.40-6.50); %Basophils 0.2 % (0.0-1.0); %Eosinophils 0.1 % (0.0-10.0); %Lymphocytes 6.7 % (21.0-51.0); %Monocytes 7.3 % (0.0-10.0); %Neutrophils 85.7 % (42.0-75.0); Mean Corpuscular HGB CONC 32.8 g/dL (32.0-36.0); Mean Corpuscular Hemoglobin 30.7 pg (27.0-31.0); Mean Corpuscular Volume 93.6 fL (78.0-98.0); Mean Platelet Volume 9.1 fL (7.4-10.4); Platelet Count 90 thou/uL (130-400); RBC Distribution Width 14.3 % (11.5-14.5); Red Blood Cell (RBC) Count 3.58 mill/uL (4.20-5.40); White Blood Cell (WBC) Count 17.2 thou/uL (4.8-10.8)
[2018-10-25] MEDS ORDERED: Ferrous Sulfate 325 MG TAB PO SCH (17:00)
[2018-10-25] MEDS ORDERED: Acetaminophen 500 MG TAB PO PRN (18:00)
[2018-10-25 20:21] LABS: #Lymphocytes 1.2 thou/uL (1.20-3.40); #Monocytes 1.4 thou/uL (0.11-0.59); #Neutrophils 16.6 thou/uL (1.40-6.50); %Lymphocytes 6.2 % (21.0-51.0); %Monocytes 7.1 % (0.0-10.0); %Neutrophils 86.6 % (42.0-75.0); Hemoglobin 11.1 g/dL (12.0-16.0); Mean Corpuscular HGB CONC 32.4 g/dL (32.0-36.0); Mean Corpuscular Hemoglobin 30.4 pg (27.0-31.0); Mean Platelet Volume 9.4 fL (7.4-10.4); Platelet Count 97 thou/uL (130-400); RBC Distribution Width 14.4 % (11.5-14.5); Red Blood Cell (RBC) Count 3.66 mill/uL (4.20-5.40); White Blood Cell (WBC) Count 19.1 thou/uL (4.8-10.8)
[2018-10-25] MEDS: guaiFENesin ER 600 MG TAB PO SCH (20:52)
[2018-10-25] MEDS ORDERED: Acetaminophen 500 MG TAB PO SCH (21:00)
[2018-10-26] MEDS: Sodium Chloride 0.9% 1,000 ML IV SCH (02:00)
[2018-10-26] MEDS: Levothyroxine Sodium 112 MCG TAB PO SCH (05:27)
[2018-10-26 06:42] LABS: #Eosinphils 0.1 thou/uL (0.0-0.7); #Lymphocytes 1.1 thou/uL (1.20-3.40); #Monocytes 1.1 thou/uL (0.11-0.59); #Neutrophils 12.9 thou/uL (1.40-6.50); %Basophils 0.2 % (0.0-1.0); %Eosinophils 0.3 % (0.0-10.0); %Lymphocytes 7.2 % (21.0-51.0); %Monocytes 7.5 % (0.0-10.0); %Neutrophils 84.8 % (42.0-75.0); Anion Gap 11 mmol/L (10-20); BUN (Urea Nitrogen) 12 mg/dL (9.8-20.1); Calc. Creatinine Clearance 88 mL/min (70-130); Calcium 8.9 mg/dL (7.8-10.44); Carbon Dioxide 22 mmol/L (23-31); Chloride 104 mmol/L (98-107); Estimated GFR-MDRD 84; Glucose 87 mg/dL (83-110); Hemoglobin 10.2 g/dL (12.0-16.0); Mean Corpuscular HGB CONC 32.3 g/dL (32.0-36.0); Mean Corpuscular Hemoglobin 30.2 pg (27.0-31.0); Mean Corpuscular Volume 93.4 fL (78.0-98.0); Mean Platelet Volume 10.1 fL (7.4-10.4); Platelet Count 81 thou/uL (130-400); Potassium 3.9 mmol/L (3.5-5.1); RBC Distribution Width 14.5 % (11.5-14.5); Red Blood Cell (RBC) Count 3.38 mill/uL (4.20-5.40); Sodium 133 mmol/L (136-145); White Blood Cell (WBC) Count 15.2 thou/uL (4.8-10.8)
[2018-10-26] MEDS ORDERED: Multivit, Therapeutic 1 TAB PO SCH (09:00)
[2018-10-26] MEDS ORDERED: Saccharomyces boulardii 250 MG CAP PO SCH (09:00)
[2018-10-26] MEDS: Aspirin Chewable 81 MG TAB PO SCH (09:31)
[2018-10-26] MEDS: traMADol HCl 50 MG TAB PO PRN (09:31)
[2018-10-26] MEDS: guaiFENesin ER 600 MG TAB PO SCH (09:31)
[2018-10-26] MEDS: Metoprolol Tartrate 25 MG TAB PO SCH (09:31)
[2018-10-26] MEDS: Digoxin 0.125 MG TAB PO SCH (09:31)
--- NOTE | 2018-10-26 10:54 | PRG ---
DATE OF SERVICE: 10/26/2018 SUBJECTIVE: Anjali Welch is doing well today. She is tolerating a regular diet. She is ambulating. She is passing flatus. She reports some discomfort from her robotic port site incisions and extraction site, but otherwise no complaints. Pathology is pending. Hemoglobin is stable at 10.1. OBJECTIVE: VITAL SIGNS: Temperature 97.6, pulse 73, and blood pressure 127/76. LUNGS: Clear to auscultation. CARDIAC: Regular rate and rhythm without murmur or gallop. ABDOMEN: Soft and nontender. Good bowel sounds. EXTREMITIES: Unremarkable. No bloody bowel movements in the last 36 hours. The patient is doing well post robotic right colectomy. Pathology pending. PLAN: Discharge home today. Follow up in my office and per appointment later this month. Job ID: [id number]
[2018-10-26 11:55] VITALS: BP 120/79; TEMP 97.8
--- NOTE | 2018-10-27 01:59 | DIS ---
DATE OF ADMISSION: 10/24/2018 DATE OF DISCHARGE: 10/26/2018 DISCHARGE DIAGNOSES: 1. Cecal cancer. 2. Anemia. 3. Chronic anticoagulation on Xarelto. 4. History of hyponatremia. 5. History of lymphoma, MediPort placed in the past, followed by Dr. Godinez. 6. History of syndrome of inappropriate antidiuretic hormone secretion, started on Tolvaptan. 7. Recent history of anemia, on admission upper and lower endoscopy reveal cecal tumor. 8. The patient had pneumonia at that time and she went to rehab and then home and is convalesced and stabilized, and admitted after a bowel prep for robotic right colectomy. Dr. Galvan has seen her with catheterization cardiac in 2016, normal pacemaker in left subclavian vein for sick sinus syndrome. Echocardiogram has been stable in the past. EF 53% without ischemia. Cardiac stress test in May 2018. CAT scan of abdomen and CEA levels are normal. Renal function is normal. The patient convalesced after pneumonia, now presents for the above operation, which she underwent. She postoperatively had GI bleeding. Toradol was discontinued. Lovenox held, and she received 1 unit of blood and discharged home with a hemoglobin of 10.1. Follow up in my office in 2 to 3 weeks. She will resume her Xarelto tomorrow. Job ID: [id number]
== END 2018-10-26 13:19 | disposition home or self-care (01) | DRG 330 ==
LOC: SURG A 09:12
PROVIDERS: ADMIT Specialist; ATTEND Specialist
PROC: 0DTF4ZZ Resection of Right Large Intestine, Percutaneous Endoscopic Approach (ICD-10-PCS; principal; 2018-10-24)
PROC: 8E0W4CZ Robotic Assisted Procedure of Trunk Region, Percutaneous Endoscopic Approach (ICD-10-PCS; 2018-10-24)
PROC: 30233N1 Transfusion of Nonautologous Red Blood Cells into Peripheral Vein, Percutaneous Approach (ICD-10-PCS; 2018-10-25)
DX: C18.0 Malignant neoplasm of cecum (principal); E87.1 Hypo-osmolality and hyponatremia; K91.840 Postprocedural hemorrhage of a digestive system organ or structure following a digestive system procedure; Y83.2 Surgical operation with anastomosis, bypass or graft as the cause of abnormal reaction of the patient, or of later complication, without mention of misadventure at the time of the procedure; Z79.01 Long term (current) use of anticoagulants
CPT/HCPCS: 36415; 36416; 36430; 80048; 83036; 85025; 86850; 86900; 86901; 93005; 93010; J0131; J1100; J1650; J1885; J2185; J2250; J2370; J3010; J3490; J7050; P9016

== ENCOUNTER 2019-04-11 10:43 | Outpatient (CLI) | payer MEDICARE ==
--- NOTE | 2019-04-11 11:42 | MMO ---
Bilateral MAMMO Bilat Screen [facility]. CLINICAL HISTORY: Patient is 84 years old and is seen for screening. The patient has no family history of breast cancer. 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 VIEWS: The views performed were: bilateral craniocaudal with tomosynthesis and bilateral mediolateral oblique with tomosynthesis. FILMS COMPARED: The present examination has been compared to prior imaging studies performed at [facility] on 06/26/2014, 08/14/2015, 05/10/2016 and 01/17/2018. This study has been interpreted with the assistance of computer-aided detection. MAMMOGRAM FINDINGS: There are scattered fibroglandular densities. There are stable benign appearing calcifications seen in both breasts. There are also vascular calcifications. There are no suspicious masses, suspicious calcifications, or new areas of architectural distortion. IMPRESSION: THERE IS NO MAMMOGRAPHIC EVIDENCE OF MALIGNANCY. A ROUTINE FOLLOW-UP MAMMOGRAM IN 1 YEAR IS RECOMMENDED. THE RESULTS OF THIS EXAM WERE SENT TO THE PATIENT. ACR BI-RADS Category 2 - Benign finding MAMMOGRAPHY NOTE: 1. A negative mammogram report should not delay a biopsy if a dominant of clinically suspicious mass is present. 2. Approximately 10% to 15% of breast cancers are not detected by mammography. 3. Adenosis and dense breasts may obscure an underlying neoplasm. Reported by: SHAWNA BALTAZAR MD Electonically Signed: [id number]
== END 2019-04-11 10:44 | disposition home or self-care (01) ==
LOC: BICMAMMO 10:43
PROVIDERS: ATTEND Internal Medicine Hematology & Oncology
DX: Z12.31 Encounter for screening mammogram for malignant neoplasm of breast (principal)
CPT/HCPCS: 77063; 77067

== ENCOUNTER 2019-11-25 09:39 | Emergency (ER) | payer MEDICARE ==
[2019-11-25] MEDS ORDERED: Acetaminophen 325 MG TAB ONE (10:00)
--- NOTE | 2019-11-25 10:20 | RAD ---
EXAM: 4 views of the right knee HISTORY: Knee pain COMPARISON: 08/27/2015 FINDINGS: . The patient is status post right knee arthroplasty without perihardware lucency or fractu re. There is a small knee effusion. Mild soft tissue swelling is present. IMPRESSION: No evidence of acute osseous abnormality.
== END 2019-11-25 11:42 | disposition home or self-care (01) ==
LOC: ERS 09:39
DX: M25.561 Pain in right knee (principal); I10 Essential (primary) hypertension; Z79.82 Long term (current) use of aspirin

== ENCOUNTER 2020-04-14 10:08 | Outpatient (CLI) | payer MEDICARE ==
--- NOTE | 2020-04-14 11:06 | BD ---
EXAM: DEXA bone density examination HISTORY: Osteoporosis screening COMPARISON: None FINDINGS: L1--bone mineral density 0.920 g/sq cm; T score -0.6. Z score 1.9 L2--bone mineral density 0.895 g/sq cm; T score -1.2; Z score 1.6 L3--bone mineral density 1.042 g/sq cm; T score -0.4; Z score 2.6 L4--bone mineral density 1.203 g/sq cm; T score 1.3, Z score 4.3 Total L1-L4--bone mineral density 1.016 g/sq cm; T score -0.3, Z score 2.6 Right distal one third shaft--bone mineral density0.573; T score -2.0, Z score 1.6 Right midforearm--bone mineral density 0.472; T score -2.5, Z score 1.1. Right ulnar distal--bone mineral density 0.375; T score -1.2; Z score 1.4 Total bone mineral density: 0.469; T score -2.0; Z score 1.5 IMPRESSION: Based on the WHO criteria, the patient's bone mineral density is consideredOsteopenic. T he patient is at moderate risk for fracture.
--- NOTE | 2020-04-14 11:24 | MMO ---
Bilateral MAMMO Bilat Screen [facility]. CLINICAL HISTORY: Patient is 85 years old and is seen for screening. The patient has no family history of breast cancer. 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 VIEWS: The views performed were: bilateral craniocaudal with tomosynthesis and bilateral mediolateral oblique with tomosynthesis. FILMS COMPARED: The present examination has been compared to prior imaging studies performed at [facility] on 08/14/2015, 05/10/2016, 01/17/2018 and 04/11/2019. This study has been interpreted with the assistance of computer-aided detection. MAMMOGRAM FINDINGS: There are scattered fibroglandular densities. Benign calcifications are noted bilaterally. There are no suspicious masses, suspicious calcifications, or new areas of architectural distortion. IMPRESSION: THERE IS NO MAMMOGRAPHIC EVIDENCE OF MALIGNANCY. A ROUTINE FOLLOW-UP MAMMOGRAM IN 1 YEAR IS RECOMMENDED. THE RESULTS OF THIS EXAM WERE SENT TO THE PATIENT. ACR BI-RADS Category 2 - Benign finding MAMMOGRAPHY NOTE: 1. A negative mammogram report should not delay a biopsy if a dominant of clinically suspicious mass is present. 2. Approximately 10% to 15% of breast cancers are not detected by mammography. 3. Adenosis and dense breasts may obscure an underlying neoplasm. Reported by: PATRICK OJEDA MD Electonically Signed: [id number]
== END 2020-04-14 10:09 | disposition home or self-care (01) ==
LOC: BICMAMMO 10:08
PROVIDERS: ATTEND Family Medicine
DX: Z12.31 Encounter for screening mammogram for malignant neoplasm of breast (principal); Z13.820 Encounter for screening for osteoporosis; M85.89 Other specified disorders of bone density and structure, multiple sites; Z85.72 Personal history of non-Hodgkin lymphomas; Z78.0 Asymptomatic menopausal state
CPT/HCPCS: 77063; 77067; 77080

== ENCOUNTER 2022-05-09 15:56 | Inpatient (IN) | payer MEDICARE ==
[2022-05-09 17:02] LABS: #Eosinphils 0.1 thou/uL (0.0-0.7); #Lymphocytes 1.3 thou/uL (1.20-3.40); #Monocytes 0.7 thou/uL (0.11-0.59); #Neutrophils 4.7 thou/uL (1.40-6.50); %Basophils 0.2 % (0.0-1.0); %Eosinophils 1.3 % (0.0-10.0); %Lymphocytes 18.9 % (21.0-51.0); %Neutrophils 68.7 % (42.0-75.0); Hemoglobin 14.6 g/dL (12.0-16.0); Mean Corpuscular HGB CONC 32.5 g/dL (32.0-36.0); Mean Corpuscular Hemoglobin 32.3 pg (27.0-31.0); Mean Corpuscular Volume 99.2 fl (78.0-98.0); Mean Platelet Volume 9.9 fL (7.4-10.4); Platelet Count 71 10x3/uL (130-400); Platelet Morphology Comment Appears Decreased; RBC Distribution Width 12.7 % (11.5-14.5); Red Blood Cell (RBC) Count 4.54 mill/uL (4.20-5.40); White Blood Cell (WBC) Count 6.8 10x3/uL (4.8-10.8)
[2022-05-09 17:15] LABS: ALT (SGPT) 19 U/L (8-55); AST (SGOT) 29 U/L (5-34); Albumin 3.9 g/dL (3.4-4.8); Alkaline Phosphatase 93 U/L (40-110); Anion Gap 11 mmol/L (10-20); BUN (Urea Nitrogen) 15 mg/dL (9.8-20.1); Bilirubin, Total 1.6 mg/dL (0.2-1.2); Calc. Creatinine Clearance 0 mL/min (70-130); Calcium 9.2 mg/dL (7.8-10.44); Carbon Dioxide 24 mmol/L (23-31); Chloride 95 mmol/L (98-107); Estimated GFR 80; Globulin 2.8 g/dL (2.4-3.5); Glucose 98 mg/dL (83-110); Potassium 4.3 mmol/L (3.5-5.1); Protein, Total 6.7 g/dL (5.8-8.1); Sodium 126 mmol/L (136-145)
[2022-05-09 19:36] LABS: Bilirubin Negative (Negative); Blood, Urine Negative (Negative); Clarity Clear (Clear); Glucose, Urine (Dipstick) Normal (Negative); Ketone, Urine Negative (Negative); Leukocyte Negative Leu/uL (Negative); Nitrite Negative (Negative); Protein, Urine (Dipstick) 20 mg/dL (Neg-Trace); Specific Gravity, Urine 1.023 (1.002-1.036); Urobilinogen 3 mg/dL (Less than 2)
[2022-05-09] MEDS ORDERED: Furosemide 40 MG/4 ML VIAL ONE (19:44)
[2022-05-10 01:03] LABS: SARS-CoV-2 NAA Rapid Test Not Detected (NotDetected)
[2022-05-10] MEDS ORDERED: Furosemide 20 MG/2 ML VIAL ONE (06:17)
[2022-05-10] MEDS: Furosemide 20 MG/2 ML VIAL SLOW IVP SCH ×2 (06:23→15:49)
[2022-05-10 06:33] LABS: #Eosinphils 0.1 thou/uL (0.0-0.7); #Lymphocytes 1.4 thou/uL (1.20-3.40); #Monocytes 0.9 thou/uL (0.11-0.59); #Neutrophils 5.6 thou/uL (1.40-6.50); %Basophils 0.2 % (0.0-1.0); %Eosinophils 1.6 % (0.0-10.0); %Lymphocytes 17.1 % (21.0-51.0); %Monocytes 11.4 % (0.0-10.0); %Neutrophils 69.8 % (42.0-75.0); Hemoglobin 14.9 g/dL (12.0-16.0); Mean Corpuscular HGB CONC 33.4 g/dL (32.0-36.0); Mean Corpuscular Hemoglobin 32.8 pg (27.0-31.0); Mean Corpuscular Volume 98.4 fl (78.0-98.0); Mean Platelet Volume 9.1 fL (7.4-10.4); Platelet Count 76 10x3/uL (130-400); RBC Distribution Width 12.8 % (11.5-14.5); Red Blood Cell (RBC) Count 4.54 mill/uL (4.20-5.40)
[2022-05-10 06:34] LABS: ALT (SGPT) 17 U/L (8-55); AST (SGOT) 48 U/L (5-34); Albumin 3.8 g/dL (3.4-4.8); Alkaline Phosphatase 87 U/L (40-110); Anion Gap 12 mmol/L (10-20); BUN (Urea Nitrogen) 11 mg/dL (9.8-20.1); Bilirubin, Total 1.9 mg/dL (0.2-1.2); Calc. Creatinine Clearance 68 mL/min (70-130); Calcium 9.2 mg/dL (7.8-10.44); Carbon Dioxide 26 mmol/L (23-31); Chloride 93 mmol/L (98-107); Estimated GFR 75; Globulin 3.1 g/dL (2.4-3.5); Glucose 93 mg/dL (83-110); Magnesium 1.9 mg/dL (1.6-2.6); Potassium 4.1 mmol/L (3.5-5.1); Protein, Total 6.9 g/dL (5.8-8.1); Sodium 127 mmol/L (136-145)
[2022-05-10] MEDS ORDERED: Acetaminophen 325 MG TAB ONE (06:49)
[2022-05-10] MEDS ORDERED: Aspirin Chewable 81 MG TAB ONE (09:17)
[2022-05-10] MEDS ORDERED: Metoprolol Tartrate 25 MG TAB ONE (09:17)
[2022-05-10] MEDS ORDERED: Famotidine 20 MG TAB ONE ×2 (09:17→09:25)
[2022-05-10] MEDS: Famotidine 20 MG TAB PO SCH ×2 (09:35→21:42)
[2022-05-10] MEDS: Metoprolol Tartrate 25 MG TAB PO SCH ×2 (09:35→21:42)
[2022-05-10] MEDS: Aspirin Chewable 81 MG TAB PO SCH (09:35)
[2022-05-10] MEDS: Sodium Chloride 1 GM TAB PO SCH ×2 (12:15→21:45)
[2022-05-10] MEDS ORDERED: FLU VACC QS2022-23(65YR UP)/PF 240 MCG/0.7 ML SYRINGE IM ONE (14:15)
[2022-05-10 14:32] VITALS: BMI 29.4
[2022-05-10] MEDS ORDERED: Morphine 4 MG/ML VIAL SLOW IVP SCH (18:00)
[2022-05-10] MEDS: Rivaroxaban 10 MG TAB PO SCH (18:29)
[2022-05-11] MEDS: Furosemide 20 MG/2 ML VIAL SLOW IVP SCH ×2 (06:27→13:27)
[2022-05-11] MEDS: Metoprolol Tartrate 25 MG TAB PO SCH ×2 (09:28→21:26)
[2022-05-11] MEDS: Famotidine 20 MG TAB PO SCH (09:28)
[2022-05-11] MEDS: Aspirin Chewable 81 MG TAB PO SCH (09:28)
[2022-05-11] MEDS: Acetaminophen 325 MG TAB PO PRN (09:30)
[2022-05-11] MEDS: Sodium Chloride 1 GM TAB PO SCH ×2 (09:34→21:30)
[2022-05-11] MEDS: Rivaroxaban 10 MG TAB PO SCH (16:51)
[2022-05-11] MEDS ORDERED: Fluticasone Propionate Nasal Spray 16 gm Bottle NASAL PRN (18:20)
[2022-05-11] MEDS: Simvastatin 10 MG TAB PO SCH (21:26)
[2022-05-12 04:17] LABS: #Eosinphils 0.1 thou/uL (0.0-0.7); #Lymphocytes 1.5 thou/uL (1.20-3.40); #Monocytes 1.4 thou/uL (0.11-0.59); #Neutrophils 6.7 thou/uL (1.40-6.50); %Basophils 0.1 % (0.0-1.0); %Eosinophils 0.8 % (0.0-10.0); %Lymphocytes 15.5 % (21.0-51.0); %Monocytes 14.6 % (0.0-10.0); %Neutrophils 69.1 % (42.0-75.0); Mean Corpuscular Hemoglobin 32.4 pg (27.0-31.0); Mean Corpuscular Volume 98.3 fl (78.0-98.0); Mean Platelet Volume 8.9 fL (7.4-10.4); Platelet Count 79 10x3/uL (130-400); RBC Distribution Width 12.6 % (11.5-14.5); Red Blood Cell (RBC) Count 4.62 mill/uL (4.20-5.40); White Blood Cell (WBC) Count 9.8 10x3/uL (4.8-10.8)
[2022-05-12 04:37] LABS: Anion Gap 9 mmol/L (10-20); BUN (Urea Nitrogen) 23 mg/dL (9.8-20.1); Calc. Creatinine Clearance 82 mL/min (70-130); Carbon Dioxide 27 mmol/L (23-31); Chloride 91 mmol/L (98-107); Estimated GFR 86; Glucose 110 mg/dL (83-110); Potassium 3.2 mmol/L (3.5-5.1); Sodium 124 mmol/L (136-145)
[2022-05-12] MEDS: Furosemide 20 MG/2 ML VIAL SLOW IVP SCH (05:15)
[2022-05-12] MEDS ORDERED: Electrolyte Replacement Protocol 1 EACH FS SCH (06:45)
[2022-05-12 07:08] LABS: Magnesium 1.9 mg/dL (1.6-2.6)
[2022-05-12] MEDS ORDERED: Levothyroxine Sodium 112 MCG TAB PO SCH ×2 (08:00→09:00)
[2022-05-12] MEDS ORDERED: Potassium Chloride 20 MEQ TAB PO SCH (08:00)
[2022-05-12] MEDS ORDERED: Non-Formulary Item 1 EACH (Iron [Iron] 18 MG Tablet) PO SCH (09:00)
[2022-05-12] MEDS: Digoxin 0.125 MG TAB PO SCH (09:26)
[2022-05-12] MEDS: Multivit, Therapeutic 1 TAB PO SCH (09:26)
[2022-05-12] MEDS: Saccharomyces boulardii 250 MG CAP PO SCH (09:26)
[2022-05-12] MEDS: Aspirin Chewable 81 MG TAB PO SCH (09:26)
[2022-05-12] MEDS: Metoprolol Tartrate 25 MG TAB PO SCH ×2 (09:26→20:46)
[2022-05-12] MEDS: Sodium Chloride 1 GM TAB PO SCH ×2 (09:35→20:48)
[2022-05-12] MEDS ORDERED: Magnesium 2 GM/50 ML(in water) 2 GM in Premix Bag 1 BAG IVPB SCH (11:00)
[2022-05-12] MEDS: Acetaminophen 325 MG TAB PO PRN (11:44)
[2022-05-12] MEDS: Senokot S 8.6-50 MG TAB PO PRN (11:45)
[2022-05-12] MEDS: Simvastatin 10 MG TAB PO SCH (20:46)
[2022-05-13 04:38] LABS: #Eosinphils 0.1 thou/uL (0.0-0.7); #Lymphocytes 1.6 thou/uL (1.20-3.40); #Monocytes 1.2 thou/uL (0.11-0.59); #Neutrophils 6.9 thou/uL (1.40-6.50); %Basophils 0.1 % (0.0-1.0); %Eosinophils 1.1 % (0.0-10.0); %Lymphocytes 16.1 % (21.0-51.0); %Monocytes 12.5 % (0.0-10.0); %Neutrophils 70.2 % (42.0-75.0); Hemoglobin 14.7 g/dL (12.0-16.0); Mean Corpuscular HGB CONC 32.3 g/dL (32.0-36.0); Mean Corpuscular Hemoglobin 31.6 pg (27.0-31.0); Mean Corpuscular Volume 97.9 fl (78.0-98.0); Platelet Count 93 10x3/uL (130-400); RBC Distribution Width 12.7 % (11.5-14.5); Red Blood Cell (RBC) Count 4.63 mill/uL (4.20-5.40); White Blood Cell (WBC) Count 9.8 10x3/uL (4.8-10.8)
[2022-05-13 04:53] LABS: Anion Gap 12 mmol/L (10-20); BUN (Urea Nitrogen) 24 mg/dL (9.8-20.1); Calc. Creatinine Clearance 85 mL/min (70-130); Calcium 8.8 mg/dL (7.8-10.44); Carbon Dioxide 24 mmol/L (23-31); Chloride 92 mmol/L (98-107); Estimated GFR 87; Glucose 106 mg/dL (83-110); Potassium 3.2 mmol/L (3.5-5.1); Sodium 125 mmol/L (136-145)
[2022-05-13] MEDS: Levothyroxine Sodium 112 MCG TAB PO SCH (05:53)
[2022-05-13] MEDS ORDERED: Potassium Chloride 20 MEQ TAB PO SCH ×3 (08:00→21:00)
[2022-05-13] MEDS ORDERED: Magnesium 2 GM/50 ML(in water) 2 GM in Premix Bag 1 BAG IVPB SCH (08:00)
[2022-05-13] MEDS ORDERED: Lidocaine 1% (PF) 30 ML VIAL FS SCH (08:15)
[2022-05-13] MEDS: Digoxin 0.125 MG TAB PO SCH (10:17)
[2022-05-13] MEDS: Aspirin Chewable 81 MG TAB PO SCH (10:17)
[2022-05-13] MEDS: Multivit, Therapeutic 1 TAB PO SCH (10:18)
[2022-05-13] MEDS: Metoprolol Tartrate 25 MG TAB PO SCH ×2 (10:18→23:03)
[2022-05-13] MEDS: Sodium Chloride 1 GM TAB PO SCH ×3 (10:18→23:03)
[2022-05-13] MEDS: Saccharomyces boulardii 250 MG CAP PO SCH (10:18)
[2022-05-13] MEDS ORDERED: Iopamidol-370 76% 500 ML 1 ML ONE (10:30)
[2022-05-13] MEDS: Acetaminophen 325 MG TAB PO PRN (13:28)
[2022-05-13] MEDS ORDERED: Bisacodyl 10 MG SUPP PR SCH (22:00)
[2022-05-13] MEDS ORDERED: Polyethylene Glycol 3350 17 GM Packet PO SCH (22:00)
[2022-05-13] MEDS: Simvastatin 10 MG TAB PO SCH (23:03)
[2022-05-14 05:15] LABS: #Lymphocytes 1.2 thou/uL (1.20-3.40); #Monocytes 0.8 thou/uL (0.11-0.59); #Neutrophils 6.8 thou/uL (1.40-6.50); %Basophils 0.3 % (0.0-1.0); %Eosinophils 0.4 % (0.0-10.0); %Lymphocytes 13.3 % (21.0-51.0); %Monocytes 9.3 % (0.0-10.0); %Neutrophils 76.8 % (42.0-75.0); Hemoglobin 15.6 g/dL (12.0-16.0); Mean Corpuscular HGB CONC 32.5 g/dL (32.0-36.0); Mean Corpuscular Hemoglobin 32.1 pg (27.0-31.0); Mean Corpuscular Volume 98.8 fl (78.0-98.0); Mean Platelet Volume 8.7 fL (7.4-10.4); Platelet Count 108 10x3/uL (130-400); RBC Distribution Width 12.4 % (11.5-14.5); Red Blood Cell (RBC) Count 4.87 mill/uL (4.20-5.40); White Blood Cell (WBC) Count 8.9 10x3/uL (4.8-10.8)
[2022-05-14 05:24] LABS: Anion Gap 15 mmol/L (10-20); BUN (Urea Nitrogen) 25 mg/dL (9.8-20.1); Calc. Creatinine Clearance 84 mL/min (70-130); Calcium 9.2 mg/dL (7.8-10.44); Carbon Dioxide 18 mmol/L (23-31); Chloride 101 mmol/L (98-107); Estimated GFR 87; Glucose 134 mg/dL (83-110); Magnesium 2.4 mg/dL (1.6-2.6); Potassium 5.2 mmol/L (3.5-5.1); Sodium 129 mmol/L (136-145)
[2022-05-14] MEDS: Levothyroxine Sodium 112 MCG TAB PO SCH (06:40)
[2022-05-14] MEDS: Aspirin Chewable 81 MG TAB PO SCH (07:54)
[2022-05-14] MEDS: Saccharomyces boulardii 250 MG CAP PO SCH (07:54)
[2022-05-14] MEDS: Digoxin 0.125 MG TAB PO SCH (07:54)
[2022-05-14] MEDS: Metoprolol Tartrate 25 MG TAB PO SCH ×2 (07:54→22:15)
[2022-05-14] MEDS: Multivit, Therapeutic 1 TAB PO SCH (07:55)
[2022-05-14] MEDS: Sodium Chloride 1 GM TAB PO SCH ×3 (07:57→22:15)
[2022-05-14] MEDS: Polyethylene Glycol 3350 17 GM Packet PO SCH (07:57)
[2022-05-14] MEDS ORDERED: Rivaroxaban 10 MG TAB PO SCH (18:30)
[2022-05-14] MEDS: Simvastatin 10 MG TAB PO SCH (22:16)
[2022-05-15 05:34] LABS: Anion Gap 10 mmol/L (10-20); BUN (Urea Nitrogen) 32 mg/dL (9.8-20.1); Calc. Creatinine Clearance 73 mL/min (70-130); Calcium 9.1 mg/dL (7.8-10.44); Carbon Dioxide 25 mmol/L (23-31); Chloride 100 mmol/L (98-107); Estimated GFR 85; Glucose 117 mg/dL (83-110); Potassium 4.3 mmol/L (3.5-5.1); Sodium 131 mmol/L (136-145)
[2022-05-15] MEDS: Levothyroxine Sodium 112 MCG TAB PO SCH (06:11)
[2022-05-15] MEDS: Sodium Chloride 1 GM TAB PO SCH ×2 (09:04→15:30)
[2022-05-15] MEDS: Saccharomyces boulardii 250 MG CAP PO SCH (09:04)
[2022-05-15] MEDS: Metoprolol Tartrate 25 MG TAB PO SCH (09:04)
[2022-05-15] MEDS: Digoxin 0.125 MG TAB PO SCH (09:04)
[2022-05-15] MEDS: Aspirin Chewable 81 MG TAB PO SCH (09:04)
[2022-05-15] MEDS: Multivit, Therapeutic 1 TAB PO SCH (09:04)
[2022-05-15] MEDS: Polyethylene Glycol 3350 17 GM Packet PO SCH (09:04)
[2022-05-15] MEDS: Senokot S 8.6-50 MG TAB PO PRN (15:30)
[2022-05-15 15:55] VITALS: BP 132/63; TEMP 97.9
[2022-05-15] MEDS ORDERED: Rivaroxaban 10 MG TAB PO SCH (17:00)
== END 2022-05-15 17:15 | DRG 291 ==
LOC: ERS 15:56 → 2NO 21:45 → ERHOLD 22:20 → 2NO 05-10 13:29
PROVIDERS: ADMIT Hospitalist; ATTEND Hospitalist
PROC: 0S9D3ZX Drainage of Left Knee Joint, Percutaneous Approach, Diagnostic (ICD-10-PCS; principal; 2022-05-13)
PROC: 3E0U33Z Introduction of Anti-inflammatory into Joints, Percutaneous Approach (ICD-10-PCS; 2022-05-13)
PROC: 3E0U3BZ Introduction of Anesthetic Agent into Joints, Percutaneous Approach (ICD-10-PCS; 2022-05-13)
PROC: 0R9J3ZX Drainage of Right Shoulder Joint, Percutaneous Approach, Diagnostic (ICD-10-PCS; 2022-05-13)
PROC: 3E0U33Z Introduction of Anti-inflammatory into Joints, Percutaneous Approach (ICD-10-PCS; 2022-05-13)
PROC: 3E0U3BZ Introduction of Anesthetic Agent into Joints, Percutaneous Approach (ICD-10-PCS; 2022-05-13)
DX: I11.0 Hypertensive heart disease with heart failure (principal); I50.33 Acute on chronic diastolic (congestive) heart failure; E87.1 Hypo-osmolality and hyponatremia; I48.20 Chronic atrial fibrillation, unspecified; K56.7 Ileus, unspecified; Z20.822 Contact with and (suspected) exposure to COVID-19; M25.411 Effusion, right shoulder; M19.011 Primary osteoarthritis, right shoulder; E78.5 Hyperlipidemia, unspecified; K21.9 Gastro-esophageal reflux disease without esophagitis; E03.9 Hypothyroidism, unspecified; M17.12 Unilateral primary osteoarthritis, left knee; M25.462 Effusion, left knee; K59.00 Constipation, unspecified; Z28.21 Immunization not carried out because of patient refusal; Z90.49 Acquired absence of other specified parts of digestive tract; Z85.038 Personal history of other malignant neoplasm of large intestine; Z95.0 Presence of cardiac pacemaker; Z79.01 Long term (current) use of anticoagulants; Z79.82 Long term (current) use of aspirin
CPT/HCPCS: 36415; 71045; 74019; 74177; 80048; 80053; 81003; 83735; 83880; 84484; 85025; 93005; 93306; 96374; 97139; J1940; J2270; J3475; Q9967; U0002

== ENCOUNTER 2022-06-23 15:56 | Emergency (ER) | payer MEDICARE ==
[2022-06-23] MEDS ORDERED: Furosemide 40 MG/4 ML VIAL ONE (16:44)
[2022-06-23 16:53] LABS: #Eosinphils 0.1 thou/uL (0.0-0.7); #Lymphocytes 1.1 thou/uL (1.20-3.40); #Monocytes 0.6 thou/uL (0.11-0.59); #Neutrophils 3.9 thou/uL (1.40-6.50); %Basophils 0.1 % (0.0-1.0); %Eosinophils 1.8 % (0.0-10.0); %Lymphocytes 19.4 % (21.0-51.0); %Monocytes 10.7 % (0.0-10.0); %Neutrophils 67.9 % (42.0-75.0); Hemoglobin 14.9 g/dL (12.0-16.0); Mean Corpuscular HGB CONC 32.6 g/dL (32.0-36.0); Mean Corpuscular Hemoglobin 31.5 pg (27.0-31.0); Mean Corpuscular Volume 96.4 fl (78.0-98.0); Mean Platelet Volume 9.5 fL (7.4-10.4); Platelet Count 69 10x3/uL (130-400); RBC Distribution Width 13.4 % (11.5-14.5); Red Blood Cell (RBC) Count 4.74 mill/uL (4.20-5.40); White Blood Cell (WBC) Count 5.8 10x3/uL (4.8-10.8)
[2022-06-23 16:54] LABS: Bilirubin Negative (Negative); Blood, Urine Negative (Negative); Clarity Clear (Clear); Glucose, Urine (Dipstick) Normal (Negative); Ketone, Urine Negative (Negative); Leukocyte Negative Leu/uL (Negative); Nitrite Negative (Negative); Protein, Urine (Dipstick) Negative (Neg-Trace); Specific Gravity, Urine 1.017 (1.002-1.036); pH, Urine 6.5 (5.0-9.0)
[2022-06-23 17:16] LABS: ALT (SGPT) 21 U/L (8-55); AST (SGOT) 27 U/L (5-34); Albumin 4.2 g/dL (3.4-4.8); Alkaline Phosphatase 104 U/L (40-110); Anion Gap 10 mmol/L (10-20); BUN (Urea Nitrogen) 16 mg/dL (9.8-20.1); Bilirubin, Total 1.4 mg/dL (0.2-1.2); Calc. Creatinine Clearance 0 mL/min (70-130); Calcium 9.7 mg/dL (7.8-10.44); Carbon Dioxide 28 mmol/L (23-31); Chloride 92 mmol/L (98-107); Estimated GFR 79; Globulin 2.8 g/dL (2.4-3.5); Glucose 96 mg/dL (83-110); Potassium 3.9 mmol/L (3.5-5.1); Sodium 126 mmol/L (136-145)
[2022-06-23 18:22] LABS: SARS-CoV-2 NAA Rapid Test Not Detected (NotDetected)
== END 2022-06-23 18:40 | disposition home or self-care (01) ==
LOC: ERS 15:56
DX: I11.0 Hypertensive heart disease with heart failure (principal); I50.9 Heart failure, unspecified; E03.9 Hypothyroidism, unspecified; K21.9 Gastro-esophageal reflux disease without esophagitis; E78.00 Pure hypercholesterolemia, unspecified
CPT/HCPCS: 0240U; 71046; 80053; 81003; 83880; 84484; 85025; 93005; 96374; J1940

== ENCOUNTER 2022-07-03 06:03 | Emergency (ER) | payer MEDICARE ==
[2022-07-03 08:50] LABS: #Lymphocytes 1.4 thou/uL (1.20-3.40); #Monocytes 1.1 thou/uL (0.11-0.59); #Neutrophils 5.5 thou/uL (1.40-6.50); %Eosinophils 0.4 % (0.0-10.0); %Lymphocytes 17.2 % (21.0-51.0); %Monocytes 13.4 % (0.0-10.0); Hemoglobin 14.5 g/dL (12.0-16.0); Mean Corpuscular HGB CONC 32.4 g/dL (32.0-36.0); Mean Corpuscular Hemoglobin 31.5 pg (27.0-31.0); Mean Corpuscular Volume 97.1 fl (78.0-98.0); Mean Platelet Volume 9.9 fL (7.4-10.4); Platelet Count 73 10x3/uL (130-400); RBC Distribution Width 13.4 % (11.5-14.5)
[2022-07-03] MEDS ORDERED: Furosemide 40 MG/4 ML VIAL ONE (08:55)
[2022-07-03 09:10] LABS: ALT (SGPT) 18 U/L (8-55); AST (SGOT) 25 U/L (5-34); Albumin 3.8 g/dL (3.4-4.8); Alkaline Phosphatase 94 U/L (40-110); Anion Gap 16 mmol/L (10-20); BUN (Urea Nitrogen) 18 mg/dL (9.8-20.1); Bilirubin, Total 2.5 mg/dL (0.2-1.2); CK (CPK) 31 U/L (29-168); Calc. Creatinine Clearance 0 mL/min (70-130); Calcium 9.2 mg/dL (7.8-10.44); Carbon Dioxide 25 mmol/L (23-31); Chloride 93 mmol/L (98-107); Estimated GFR 87; Globulin 2.5 g/dL (2.4-3.5); Glucose 107 mg/dL (83-110); Lipase 8 U/L (8-78); Potassium 3.5 mmol/L (3.5-5.1); Protein, Total 6.3 g/dL (5.8-8.1); Sodium 130 mmol/L (136-145)
[2022-07-03 09:32] LABS: Bacteria/HPF None Seen HPF (None Seen); Bilirubin Negative (Negative); Blood, Urine Negative (Negative); Clarity Clear (Clear); Glucose, Urine (Dipstick) Normal (Negative); Ketone, Urine Trace mg/dL (Negative); Leukocyte Negative Leu/uL (Negative); Nitrite Negative (Negative); Protein, Urine (Dipstick) 30 mg/dL (Neg-Trace); RBC/HPF 0-3 HPF (0-3); Specific Gravity, Urine 1.025 (1.002-1.036); Squamous Epithelial 0-3 HPF (0-3); Urobilinogen 3 mg/dL (Less than 2); WBC/HPF 0-3 HPF (0-3); pH, Urine 6.5 (5.0-9.0)
== END 2022-07-03 12:56 | disposition home or self-care (01) ==
LOC: ERS 06:03
DX: R22.43 Localized swelling, mass and lump, lower limb, bilateral (principal); E03.9 Hypothyroidism, unspecified; K21.9 Gastro-esophageal reflux disease without esophagitis; E78.00 Pure hypercholesterolemia, unspecified; I10 Essential (primary) hypertension; Z79.82 Long term (current) use of aspirin; Z79.899 Other long term (current) drug therapy
CPT/HCPCS: 36415; 71045; 80053; 81003; 81015; 82550; 83690; 83880; 84484; 85025; 93005; 96374; J1940

== ENCOUNTER 2023-01-02 11:39 | Inpatient (IN) | payer MEDICARE ==
[~2023-01-02 11:39] MED LIST: Iopamidol-370 76% 500 ML MDV (1 ML CHARGE) ONE
[2023-01-02] MEDS ORDERED: Ondansetron PF 4 MG/2 ML Vial ONE (12:08)
[2023-01-02] MEDS ORDERED: Morphine 2 MG/ML VIAL ONE (12:08)
[2023-01-02 12:41] LABS: #Monocytes 0.5 thou/uL (0.11-0.59); #Neutrophils 5.5 thou/uL (1.40-6.50); %Basophils 0.3 % (0.0-1.0); %Eosinophils 0.3 % (0.0-10.0); %Monocytes 6.4 % (0.0-10.0); %Neutrophils 76.7 % (42.0-75.0); Hematocrit 41.8 % (36.0-47.0); Hemoglobin 14.6 g/dL (12.0-16.0); Mean Corpuscular HGB CONC 34.9 g/dL (32.0-36.0); Mean Corpuscular Hemoglobin 32.4 pg (27.0-31.0); Mean Corpuscular Volume 92.9 fl (78.0-98.0); Mean Platelet Volume 10.6 fL (7.4-10.4); RBC Distribution Width 12.9 % (11.5-14.5); White Blood Cell (WBC) Count 7.2 10x3/uL (4.8-10.8)
[2023-01-02 12:44] LABS: Platelet Count 91 10x3/uL (130-400)
[2023-01-02 13:05] LABS: ALT (SGPT) 18 U/L (8-55); AST (SGOT) 27 U/L (5-34); Albumin 4.2 g/dL (3.4-4.8); Alkaline Phosphatase 110 U/L (40-110); Anion Gap 12 mmol/L (10-20); BUN (Urea Nitrogen) 16 mg/dL (9.8-20.1); Bilirubin, Total 1.3 mg/dL (0.2-1.2); Calc. Creatinine Clearance 0 mL/min (70-130); Calcium 10.2 mg/dL (7.8-10.44); Carbon Dioxide 24 mmol/L (23-31); Chloride 98 mmol/L (98-107); Estimated GFR 72; Globulin 2.7 g/dL (2.4-3.5); Glucose 134 mg/dL (83-110); Lipase 10 U/L (8-78); Potassium 3.3 mmol/L (3.5-5.1); Protein, Total 6.9 g/dL (5.8-8.1); Sodium 131 mmol/L (136-145)
[2023-01-02 14:00] LABS: Bilirubin Negative (Negative); Blood, Urine Negative (Negative); CAUTI Indications for Culture Dysuria,urgency,freq; Clarity Turbid (Clear); Glucose, Urine (Dipstick) Normal (Negative); Ketone, Urine Negative (Negative); Leukocyte Negative Leu/uL (Negative); Nitrite Negative (Negative); Protein, Urine (Dipstick) Negative (Neg-Trace); RBC/HPF 0-3 HPF (0-3); Specific Gravity, Urine 1.011 (1.002-1.036); Squamous Epithelial 0-3 HPF (0-3); Urobilinogen Normal mg/dL (Less than 2); WBC/HPF 0-3 HPF (0-3)
[2023-01-02 14:08] LABS: Bacteria/HPF Rare-Few HPF (None Seen)
[2023-01-02 14:09] LABS: Urine Culture Reflex No No
[2023-01-02] MEDS ORDERED: Morphine 4 MG/ML VIAL ONE (14:21)
[2023-01-02 15:27] LABS: INR-International Normal Ratio 1.6; PTT 32.7 sec (22.9-36.1)
[2023-01-02] MEDS ORDERED: Ipratropium/Albuterol 3 ML NEB NEB PRN (17:53)
[2023-01-02] MEDS ORDERED: Sodium Chloride 0.9% 1,000 ML IV SCH (18:00)
[2023-01-02] MEDS: Sodium Chloride 0.9% 1,000 ML IV SCH (22:17)
[2023-01-02] MEDS: Famotidine/PF 20 mg/2ml Vial SLOW IVP SCH (22:18)
[2023-01-02] MEDS: Metoprolol Tartrate 25 MG TAB PO SCH (22:18)
[2023-01-02] MEDS: Simvastatin 10 MG TAB PO SCH (22:19)
[2023-01-02] MEDS: Acetaminophen 500 MG TAB PO SCH ×2 (22:19→23:50)
[2023-01-03] MEDS: Acetaminophen 500 MG TAB PO SCH ×3 (05:25→23:47)
[2023-01-03] MEDS ORDERED: Levothyroxine Sodium 112 MCG TAB PO SCH (06:00)
[2023-01-03 07:01] LABS: #Eosinphils 0.1 thou/uL (0.0-0.7); #Monocytes 0.7 thou/uL (0.11-0.59); #Neutrophils 3.8 thou/uL (1.40-6.50); %Basophils 0.2 % (0.0-1.0); %Eosinophils 1.6 % (0.0-10.0); %Lymphocytes 19.5 % (21.0-51.0); %Monocytes 12.4 % (0.0-10.0); Hematocrit 38.6 % (36.0-47.0); Hemoglobin 12.8 g/dL (12.0-16.0); Mean Corpuscular HGB CONC 33.2 g/dL (32.0-36.0); Mean Corpuscular Hemoglobin 31.8 pg (27.0-31.0); Mean Platelet Volume 10.5 fL (7.4-10.4); RBC Distribution Width 13.2 % (11.5-14.5); Red Blood Cell (RBC) Count 4.02 mill/uL (4.20-5.40); White Blood Cell (WBC) Count 5.8 10x3/uL (4.8-10.8)
[2023-01-03 07:15] LABS: Phosphorus 3.2 mg/dL (2.3-4.7)
[2023-01-03 07:16] LABS: Anion Gap 11 mmol/L (10-20); BUN (Urea Nitrogen) 13 mg/dL (9.8-20.1); Calc. Creatinine Clearance 66 mL/min (70-130); Calcium 9.3 mg/dL (7.8-10.44); Carbon Dioxide 23 mmol/L (23-31); Chloride 103 mmol/L (98-107); Estimated GFR 81; Glucose 88 mg/dL (83-110); Magnesium 2.1 mg/dL (1.6-2.6); Potassium 3.3 mmol/L (3.5-5.1); Sodium 134 mmol/L (136-145)
[2023-01-03 07:24] LABS: Platelet Count 83 10x3/uL (130-400)
[2023-01-03] MEDS ORDERED: Potassium Phosphate 30 MMOL in Sodium Chloride 0.9% 250 ML 250 ML IVPB SCH ×2 (08:45→23:30)
[2023-01-03] MEDS: Metoprolol Tartrate 25 MG TAB PO SCH ×3 (10:03→20:44)
[2023-01-03] MEDS: Famotidine/PF 20 mg/2ml Vial SLOW IVP SCH (10:04)
[2023-01-03] MEDS ORDERED: fentaNYL PF 100 MCG/2 ML SYRINGE ONE ×2 (13:34→14:53)
[2023-01-03] MEDS ORDERED: Vasopressin 20 UNITS/ML VIAL ONE (13:34)
[2023-01-03] MEDS ORDERED: Albumin 5% 250 ML ONE (13:57)
[2023-01-03] MEDS ORDERED: SUGAMMADEX SODIUM 200 MG/2 ML VIAL ONE ×2 (13:57→14:53)
[2023-01-03] MEDS ORDERED: PROPOFOL 200 MG/20 ML VIAL ONE (14:32)
[2023-01-03] MEDS ORDERED: Metoprolol Tartrate 5 MG/5 ML VIAL ONE (14:32)
[2023-01-03] MEDS ORDERED: Rocuronium Bromide 10 MG/ML (10ML VIAL) ONE (14:32)
[2023-01-03] MEDS ORDERED: Dexamethasone 20 MG/5 ML VIAL ONE (14:32)
[2023-01-03] MEDS ORDERED: Ondansetron PF 4 MG/2 ML Vial ONE (14:32)
[2023-01-03] MEDS ORDERED: Succinylcholine 200 MG/10 ml SYRINGE FS ONE (14:32)
[2023-01-03] MEDS ORDERED: Ketamine 50 MG/ML (10ML VIAL) ONE (14:53)
[2023-01-03] MEDS ORDERED: Sodium Chloride 0.9% 100 ML ONE (15:14)
[2023-01-03] MEDS ORDERED: cefOXitin 2 GM VIAL ONE (15:14)
[2023-01-03] MEDS ORDERED: Sevoflurane 250 ML INH ANEST BOTTLE ONE (15:54)
[2023-01-03] MEDS ORDERED: Ondansetron HCl/PF 4 MG/2 ML Vial IVP PRN (17:30)
[2023-01-03] MEDS ORDERED: fentaNYL 50 mcg/mL 1 mL Vial ONE ×2 (17:37→18:20)
[2023-01-03] MEDS: Sodium Chloride 0.9% 1,000 ML IV SCH (18:13)
[2023-01-03] MEDS: Potassium Chloride 20 MEQ in Lactated Ringer's 1,000 ML IV SCH (19:31)
[2023-01-03] MEDS: Ketorolac Tromethamine 30 MG/ML VIAL IVP SCH ×2 (19:35→23:49)
[2023-01-03] MEDS: Ondansetron PF 4 MG/2 ML Vial IVP PRN (19:36)
[2023-01-03] MEDS: Morphine 2 MG/ML VIAL SLOW IVP PRN ×2 (19:45→22:00)
[2023-01-03 21:45] LABS: Anion Gap 14 mmol/L (10-20); BUN (Urea Nitrogen) 13 mg/dL (9.8-20.1); Calc. Creatinine Clearance 64 mL/min (70-130); Calcium 9.1 mg/dL (7.8-10.44); Carbon Dioxide 19 mmol/L (23-31); Chloride 106 mmol/L (98-107); Estimated GFR 77; Glucose 111 mg/dL (83-110); Magnesium 1.8 mg/dL (1.6-2.6); Phosphorus 3.3 mg/dL (2.3-4.7); Potassium 3.3 mmol/L (3.5-5.1); Sodium 136 mmol/L (136-145)
[2023-01-03] MEDS: Simvastatin 10 MG TAB PO SCH (21:59)
[2023-01-03] MEDS ORDERED: Potassium Chloride 10 MEQ in Premix Bag 1 BAG IVPB SCH (22:15)
[2023-01-03] MEDS: cefOXitin 2 GM in Sodium Chloride 0.9% 100 ML IVPB SCH (22:35)
[2023-01-03] MEDS ORDERED: Magnesium 2 GM/50 ML(in water) 2 GM in Premix Bag 1 BAG IVPB SCH (23:15)
[2023-01-03] MEDS ORDERED: Lactated Ringer's 1,000 ML IV SCH (23:30)
[2023-01-04 04:12] LABS: #Monocytes 0.6 thou/uL (0.11-0.59); #Neutrophils 10.7 thou/uL (1.40-6.50); %Basophils 0.1 % (0.0-1.0); %Lymphocytes 6.9 % (21.0-51.0); %Monocytes 5.1 % (0.0-10.0); %Neutrophils 87.7 % (42.0-75.0); Hematocrit 37.9 % (36.0-47.0); Hemoglobin 12.4 g/dL (12.0-16.0); Mean Corpuscular HGB CONC 32.7 g/dL (32.0-36.0); Mean Corpuscular Hemoglobin 32.1 pg (27.0-31.0); Mean Corpuscular Volume 98.2 fl (78.0-98.0); Mean Platelet Volume 11.3 fL (7.4-10.4); RBC Distribution Width 13.2 % (11.5-14.5); Red Blood Cell (RBC) Count 3.86 mill/uL (4.20-5.40); White Blood Cell (WBC) Count 12.2 10x3/uL (4.8-10.8)
[2023-01-04 04:35] LABS: Platelet Count 88 10x3/uL (130-400)
[2023-01-04 04:48] LABS: Anion Gap 16 mmol/L (10-20); BUN (Urea Nitrogen) 15 mg/dL (9.8-20.1); Calc. Creatinine Clearance 61 mL/min (70-130); Calcium 9.3 mg/dL (7.8-10.44); Carbon Dioxide 22 mmol/L (23-31); Chloride 104 mmol/L (98-107); Estimated GFR 74; Glucose 141 mg/dL (83-110); Magnesium 2.4 mg/dL (1.6-2.6); Phosphorus 4.6 mg/dL (2.3-4.7); Potassium 4.3 mmol/L (3.5-5.1); Sodium 138 mmol/L (136-145)
[2023-01-04] MEDS ORDERED: Lactated Ringer's 500 ML IV SCH (05:45)
[2023-01-04] MEDS: cefOXitin 2 GM in Sodium Chloride 0.9% 100 ML IVPB SCH ×3 (05:47→20:42)
[2023-01-04] MEDS: Ketorolac Tromethamine 30 MG/ML VIAL IVP SCH ×3 (05:48→17:09)
[2023-01-04] MEDS: Levothyroxine Sodium 112 MCG TAB PO SCH (05:49)
[2023-01-04] MEDS: Acetaminophen 500 MG TAB PO SCH ×3 (05:49→17:09)
[2023-01-04] MEDS: Potassium Chloride 20 MEQ in Lactated Ringer's 1,000 ML IV SCH ×2 (10:17→14:10)
[2023-01-04] MEDS: Metoprolol Tartrate 25 MG TAB PO SCH ×2 (10:19→20:40)
[2023-01-04] MEDS ORDERED: Rivaroxaban 10 MG TAB PO SCH (17:00)
[2023-01-04] MEDS ORDERED: Potassium Chloride 20 MEQ in Lactated Ringer's 1,000 ML IV SCH (18:58)
[2023-01-04] MEDS: Oxybutynin 5 MG TAB PO SCH (20:42)
[2023-01-04] MEDS: Simvastatin 10 MG TAB PO SCH (20:42)
[2023-01-04] MEDS: Polyethylene Glycol OPTH DROP 15 ML BOT EA EYE SCH (20:43)
[2023-01-04] MEDS ORDERED: Furosemide 20 MG/2 ML VIAL SLOW IVP SCH (21:30)
[2023-01-04] MEDS ORDERED: Digoxin 0.5 MG/2 ML AMP SLOW IVP SCH (22:00)
[2023-01-05] MEDS: Acetaminophen 500 MG TAB PO SCH ×4 (00:41→17:24)
[2023-01-05] MEDS: Ketorolac Tromethamine 30 MG/ML VIAL IVP SCH ×4 (00:43→17:23)
[2023-01-05] MEDS: Digoxin 0.5 MG/2 ML AMP SLOW IVP SCH ×2 (05:13→11:16)
[2023-01-05] MEDS: cefOXitin 2 GM in Sodium Chloride 0.9% 100 ML IVPB SCH ×3 (05:14→21:35)
[2023-01-05] MEDS: Levothyroxine Sodium 112 MCG TAB PO SCH (05:14)
[2023-01-05] MEDS: Lactated Ringer's 1,000 ML IV SCH ×2 (05:49→08:55)
[2023-01-05 06:52] LABS: #Monocytes 0.8 thou/uL (0.11-0.59); %Basophils 0.1 % (0.0-1.0); %Lymphocytes 8.6 % (21.0-51.0); %Monocytes 6.5 % (0.0-10.0); %Neutrophils 84.2 % (42.0-75.0); Hematocrit 29.5 % (36.0-47.0); Hemoglobin 9.8 g/dL (12.0-16.0); Mean Corpuscular HGB CONC 33.2 g/dL (32.0-36.0); Mean Corpuscular Hemoglobin 32.3 pg (27.0-31.0); Mean Corpuscular Volume 97.4 fl (78.0-98.0); Mean Platelet Volume 12.3 fL (7.4-10.4); RBC Distribution Width 13.4 % (11.5-14.5); Red Blood Cell (RBC) Count 3.03 mill/uL (4.20-5.40); White Blood Cell (WBC) Count 11.9 10x3/uL (4.8-10.8)
[2023-01-05 06:53] LABS: Platelet Count 80 10x3/uL (130-400)
[2023-01-05 07:26] LABS: Anion Gap 11 mmol/L (10-20); BUN (Urea Nitrogen) 21 mg/dL (9.8-20.1); Calc. Creatinine Clearance 38 mL/min (70-130); Carbon Dioxide 23 mmol/L (23-31); Chloride 105 mmol/L (98-107); Potassium 4.5 mmol/L (3.5-5.1); Sodium 134 mmol/L (136-145)
[2023-01-05 07:27] LABS: Calcium 8.9 mg/dL (7.8-10.44); Estimated GFR 40; Glucose 114 mg/dL (83-110); Phosphorus 3.1 mg/dL (2.3-4.7)
[2023-01-05] MEDS: Metoprolol Tartrate 25 MG TAB PO SCH ×2 (08:47→21:34)
[2023-01-05] MEDS: Furosemide 40 MG TAB PO SCH (08:47)
[2023-01-05] MEDS: Polyethylene Glycol OPTH DROP 15 ML BOT EA EYE SCH ×2 (08:55→21:35)
[2023-01-05 13:29] LABS: Creatinine, Urine 88.68 mg/dL (47-110)
[2023-01-05] MEDS ORDERED: Rivaroxaban 15 MG TAB PO SCH (17:00)
[2023-01-05] MEDS: Rivaroxaban 15 MG TAB PO SCH (17:24)
[2023-01-05] MEDS: Oxybutynin 5 MG TAB PO SCH (21:34)
[2023-01-05] MEDS: Simvastatin 10 MG TAB PO SCH (21:35)
[2023-01-06] MEDS: Ketorolac Tromethamine 30 MG/ML VIAL IVP SCH ×4 (00:24→17:21)
[2023-01-06] MEDS: Acetaminophen 500 MG TAB PO SCH ×4 (00:24→17:22)
[2023-01-06 04:00] LABS: #Monocytes 0.7 thou/uL (0.11-0.59); #Neutrophils 10.2 thou/uL (1.40-6.50); %Eosinophils 0.1 % (0.0-10.0); %Monocytes 5.8 % (0.0-10.0); %Neutrophils 83.4 % (42.0-75.0); Hematocrit 29.4 % (36.0-47.0); Hemoglobin 9.6 g/dL (12.0-16.0); Mean Corpuscular HGB CONC 32.7 g/dL (32.0-36.0); Mean Corpuscular Hemoglobin 32.2 pg (27.0-31.0); Mean Corpuscular Volume 98.7 fl (78.0-98.0); Mean Platelet Volume 10.6 fL (7.4-10.4); RBC Distribution Width 13.2 % (11.5-14.5); Red Blood Cell (RBC) Count 2.98 mill/uL (4.20-5.40); White Blood Cell (WBC) Count 12.3 10x3/uL (4.8-10.8)
[2023-01-06 04:21] LABS: Anion Gap 13 mmol/L (10-20); BUN (Urea Nitrogen) 28 mg/dL (9.8-20.1); Calc. Creatinine Clearance 42 mL/min (70-130); Calcium 9.5 mg/dL (7.8-10.44); Carbon Dioxide 23 mmol/L (23-31); Chloride 105 mmol/L (98-107); Estimated GFR 45; Glucose 95 mg/dL (83-110); Potassium 4.4 mmol/L (3.5-5.1); Sodium 137 mmol/L (136-145)
[2023-01-06] MEDS: Lactated Ringer's 1,000 ML IV SCH ×3 (05:10→22:51)
[2023-01-06 05:19] LABS: Platelet Count 84 10x3/uL (130-400)
[2023-01-06] MEDS: Levothyroxine Sodium 112 MCG TAB PO SCH (06:21)
[2023-01-06] MEDS: Pantoprazole 40 MG VIAL IVP SCH (09:39)
[2023-01-06] MEDS: Senokot S 8.6-50 MG TAB PO SCH ×2 (09:40→21:39)
[2023-01-06] MEDS: Furosemide 40 MG TAB PO SCH (09:40)
[2023-01-06] MEDS: Polyethylene Glycol 3350 17 GM Packet PO SCH (09:40)
[2023-01-06] MEDS: Polyethylene Glycol OPTH DROP 15 ML BOT EA EYE SCH ×2 (09:40→21:40)
[2023-01-06] MEDS: Metoprolol Tartrate 25 MG TAB PO SCH ×2 (09:40→21:39)
[2023-01-06] MEDS: Rivaroxaban 15 MG TAB PO SCH (17:21)
[2023-01-06] MEDS: Simvastatin 10 MG TAB PO SCH (21:39)
[2023-01-06] MEDS: Oxybutynin 5 MG TAB PO SCH (21:39)
[2023-01-07] MEDS: Acetaminophen 500 MG TAB PO SCH ×4 (00:37→17:42)
[2023-01-07] MEDS: Ketorolac Tromethamine 30 MG/ML VIAL IVP SCH ×3 (00:37→11:39)
[2023-01-07] MEDS: Levothyroxine Sodium 112 MCG TAB PO SCH (05:59)
[2023-01-07] MEDS: Furosemide 40 MG TAB PO SCH (09:11)
[2023-01-07] MEDS: Metoprolol Tartrate 25 MG TAB PO SCH ×2 (09:11→21:28)
[2023-01-07] MEDS: Polyethylene Glycol 3350 17 GM Packet PO SCH (09:11)
[2023-01-07] MEDS: Pantoprazole 40 MG VIAL IVP SCH (09:13)
[2023-01-07] MEDS: Senokot S 8.6-50 MG TAB PO SCH ×2 (09:14→21:28)
[2023-01-07] MEDS: Polyethylene Glycol OPTH DROP 15 ML BOT EA EYE SCH ×2 (09:14→21:29)
[2023-01-07] MEDS: Lactated Ringer's 1,000 ML IV SCH ×2 (09:23→20:47)
[2023-01-07] MEDS: Rivaroxaban 15 MG TAB PO SCH (16:32)
[2023-01-07] MEDS ORDERED: Sodium Chloride 0.45% 500 ML IV SCH (17:30)
[2023-01-07 18:49] LABS: Bacteria/HPF None Seen HPF (None Seen); Bilirubin Negative (Negative); Blood, Urine 3+ (Negative); CAUTI Indications for Culture Acute Hematuria; Clarity Turbid (Clear); Glucose, Urine (Dipstick) Normal (Negative); Ketone, Urine 20 mg/dL (Negative); Leukocyte Negative Leu/uL (Negative); Nitrite Negative (Negative); Protein, Urine (Dipstick) 30 mg/dL (Neg-Trace); RBC/HPF Greater than 50 HPF (0-3); Specific Gravity, Urine 1.024 (1.002-1.036); Squamous Epithelial 0-3 HPF (0-3); Urobilinogen Normal mg/dL (Less than 2); WBC/HPF 0-3 HPF (0-3)
[2023-01-07 19:16] LABS: Urine Culture Reflex No No
[2023-01-07] MEDS: Oxybutynin 5 MG TAB PO SCH (21:28)
[2023-01-07] MEDS: Simvastatin 10 MG TAB PO SCH (21:29)
[2023-01-08] MEDS: Acetaminophen 500 MG TAB PO SCH ×5 (00:50→23:30)
[2023-01-08] MEDS: Levothyroxine Sodium 112 MCG TAB PO SCH (05:40)
[2023-01-08] MEDS: Polyethylene Glycol 3350 17 GM Packet PO SCH ×2 (08:55→20:29)
[2023-01-08] MEDS: Furosemide 40 MG TAB PO SCH (08:55)
[2023-01-08] MEDS: Senokot S 8.6-50 MG TAB PO SCH ×2 (08:55→20:29)
[2023-01-08] MEDS: Metoprolol Tartrate 25 MG TAB PO SCH ×2 (08:55→20:29)
[2023-01-08] MEDS: Polyethylene Glycol OPTH DROP 15 ML BOT EA EYE SCH ×2 (09:03→20:30)
[2023-01-08] MEDS: Lactated Ringer's 1,000 ML IV SCH ×2 (09:03→13:46)
[2023-01-08] MEDS: Pantoprazole 40 MG VIAL IVP SCH (09:12)
[2023-01-08] MEDS: Rivaroxaban 15 MG TAB PO SCH (17:15)
[2023-01-08] MEDS: Oxybutynin 5 MG TAB PO SCH (20:29)
[2023-01-08] MEDS: Simvastatin 10 MG TAB PO SCH (20:29)
[2023-01-08] MEDS ORDERED: Lactated Ringer's 1,000 ML IV SCH (23:45)
[2023-01-09] MEDS: Lactated Ringer's 1,000 ML IV SCH
[2023-01-09] MEDS ORDERED: Furosemide 40 MG/4 ML VIAL SLOW IVP SCH ×2 (04:00→08:00)
[2023-01-09 04:39] LABS: #Eosinphils 0.3 thou/uL (0.0-0.7); #Monocytes 1.1 thou/uL (0.11-0.59); #Neutrophils 5.3 thou/uL (1.40-6.50); %Basophils 0.1 % (0.0-1.0); %Eosinophils 3.3 % (0.0-10.0); %Lymphocytes 13.8 % (21.0-51.0); %Monocytes 14.1 % (0.0-10.0); %Neutrophils 67.8 % (42.0-75.0); Hematocrit 30.6 % (36.0-47.0); Hemoglobin 10.1 g/dL (12.0-16.0); Mean Corpuscular Hemoglobin 31.7 pg (27.0-31.0); Mean Corpuscular Volume 95.9 fl (78.0-98.0); Mean Platelet Volume 10.4 fL (7.4-10.4); Platelet Count 127 10x3/uL (130-400); Red Blood Cell (RBC) Count 3.19 mill/uL (4.20-5.40); White Blood Cell (WBC) Count 7.9 10x3/uL (4.8-10.8)
[2023-01-09 05:03] LABS: Anion Gap 12 mmol/L (10-20); BUN (Urea Nitrogen) 27 mg/dL (9.8-20.1); Calc. Creatinine Clearance 71 mL/min (70-130); Calcium 8.7 mg/dL (7.8-10.44); Carbon Dioxide 23 mmol/L (23-31); Chloride 104 mmol/L (98-107); Estimated GFR 74; Glucose 107 mg/dL (83-110); Magnesium 1.6 mg/dL (1.6-2.6); Potassium 3.9 mmol/L (3.5-5.1); Sodium 135 mmol/L (136-145)
[2023-01-09] MEDS: Levothyroxine Sodium 112 MCG TAB PO SCH (05:58)
[2023-01-09] MEDS: Acetaminophen 500 MG TAB PO SCH ×4 (05:58→23:21)
[2023-01-09] MEDS: Metoprolol Tartrate 25 MG TAB PO SCH ×2 (08:58→21:00)
[2023-01-09] MEDS: Polyethylene Glycol 3350 17 GM Packet PO SCH ×2 (08:58→20:42)
[2023-01-09] MEDS: Senokot S 8.6-50 MG TAB PO SCH ×2 (08:59→20:41)
[2023-01-09] MEDS: Spironolactone 25 MG TAB PO SCH (08:59)
[2023-01-09] MEDS: Polyethylene Glycol OPTH DROP 15 ML BOT EA EYE SCH ×2 (09:00→20:43)
[2023-01-09] MEDS: Pantoprazole 40 MG VIAL IVP SCH (09:00)
[2023-01-09] MEDS: Furosemide 40 MG/4 ML VIAL SLOW IVP SCH (14:54)
[2023-01-09] MEDS: Rivaroxaban 10 MG TAB PO SCH (18:42)
[2023-01-09] MEDS: Oxybutynin 5 MG TAB PO SCH (20:41)
[2023-01-09] MEDS: Simvastatin 10 MG TAB PO SCH (20:41)
[2023-01-09] MEDS ORDERED: Furosemide 20 MG/2 ML VIAL SLOW IVP SCH (23:45)
[2023-01-09] MEDS ORDERED: Furosemide 20 MG in Sodium Chloride 0.9% 90 ML IVPB SCH (23:45)
[2023-01-10] MEDS: Furosemide 40 MG/4 ML VIAL SLOW IVP SCH ×2 (05:27→15:45)
[2023-01-10] MEDS: Acetaminophen 500 MG TAB PO SCH ×2 (05:29→16:19)
[2023-01-10] MEDS: Levothyroxine Sodium 112 MCG TAB PO SCH (05:30)
[2023-01-10] MEDS: Spironolactone 25 MG TAB PO SCH (16:18)
[2023-01-10] MEDS: Metoprolol Tartrate 25 MG TAB PO SCH ×2 (16:18→21:02)
[2023-01-10] MEDS: Senokot S 8.6-50 MG TAB PO SCH ×2 (16:19→21:02)
[2023-01-10] MEDS: Pantoprazole 40 MG VIAL IVP SCH (16:19)
[2023-01-10] MEDS: Polyethylene Glycol 3350 17 GM Packet PO SCH ×2 (16:19→21:03)
[2023-01-10] MEDS: Polyethylene Glycol OPTH DROP 15 ML BOT EA EYE SCH ×2 (16:19→21:11)
[2023-01-10] MEDS: Simvastatin 10 MG TAB PO SCH (21:03)
[2023-01-10] MEDS: Oxybutynin 5 MG TAB PO SCH (21:03)
[2023-01-11] MEDS: Acetaminophen 500 MG TAB PO SCH ×4 (00:12→22:33)
[2023-01-11] MEDS: Furosemide 40 MG/4 ML VIAL SLOW IVP SCH (05:41)
[2023-01-11] MEDS: Levothyroxine Sodium 112 MCG TAB PO SCH (05:47)
[2023-01-11 05:52] LABS: Hemoglobin 11.7 g/dL (12.0-16.0); Mean Corpuscular HGB CONC 33.4 g/dL (32.0-36.0); Mean Corpuscular Hemoglobin 31.9 pg (27.0-31.0); Mean Corpuscular Volume 95.4 fl (78.0-98.0); Mean Platelet Volume 10.3 fL (7.4-10.4); Platelet Count 156 10x3/uL (130-400); Red Blood Cell (RBC) Count 3.67 mill/uL (4.20-5.40); White Blood Cell (WBC) Count 6.2 10x3/uL (4.8-10.8)
[2023-01-11 05:57] LABS: Delete Auto Diff?? YES; Manual Diff?? YES
[2023-01-11 06:16] LABS: Anion Gap 15 mmol/L (10-20); BUN (Urea Nitrogen) 46 mg/dL (9.8-20.1); Calc. Creatinine Clearance 47 mL/min (70-130); Calcium 8.5 mg/dL (7.8-10.44); Carbon Dioxide 24 mmol/L (23-31); Chloride 98 mmol/L (98-107); Estimated GFR 45; Glucose 113 mg/dL (83-110); Potassium 3.3 mmol/L (3.5-5.1); Sodium 134 mmol/L (136-145)
[2023-01-11 06:34] LABS: Band 13 % (5-11); Burr Cells MODERATE= 6-15 cells HPF (0-1); CellaVision Operator ID lab.abc; Eosinophils 2 % (0-10); Large Platelets 5.9 % (0-5); Lymphocytes 11 % (21-51); Monocytes 14 % (0-10); Neutrophil 60 % (42-75); Nucleated RBC (Manual Ct) 2 % (0); Platelet Adequacy Comment Platelets Normal; Polychromasia SLIGHT = 2-3 cells HPF (0-2); Total Cell Count 101
[2023-01-11] MEDS ORDERED: Potassium Chloride 20 MEQ in Premix Bag 1 BAG IVPB SCH ×2 (08:45→19:00)
[2023-01-11 09:26] LABS: Magnesium 1.6 mg/dL (1.6-2.6)
[2023-01-11] MEDS: Spironolactone 25 MG TAB PO SCH (10:04)
[2023-01-11] MEDS: Rivaroxaban 10 MG TAB PO SCH ×2 (10:04→17:53)
[2023-01-11] MEDS: Metoprolol Tartrate 25 MG TAB PO SCH ×2 (10:04→21:02)
[2023-01-11] MEDS: Polyethylene Glycol 3350 17 GM Packet PO SCH ×2 (10:05→21:02)
[2023-01-11] MEDS: Pantoprazole 40 MG VIAL IVP SCH (10:05)
[2023-01-11] MEDS: Senokot S 8.6-50 MG TAB PO SCH ×2 (10:05→21:03)
[2023-01-11] MEDS ORDERED: Magnesium 2 GM/50 ML(in water) 2 GM in Premix Bag 1 BAG IVPB SCH (11:15)
[2023-01-11] MEDS: Polyethylene Glycol OPTH DROP 15 ML BOT EA EYE SCH ×2 (17:52→21:03)
[2023-01-11] MEDS: Oxybutynin 5 MG TAB PO SCH (21:02)
[2023-01-11] MEDS: Simvastatin 10 MG TAB PO SCH (21:03)
[2023-01-12] MEDS: Levothyroxine Sodium 112 MCG TAB PO SCH (05:31)
[2023-01-12] MEDS: Acetaminophen 500 MG TAB PO SCH (05:31)
[2023-01-12] MEDS ORDERED: Furosemide 40 MG/4 ML VIAL SLOW IVP SCH (06:00)
[2023-01-12] MEDS: Acetaminophen 325 MG TAB PO SCH ×3 (08:29→21:02)
[2023-01-12] MEDS: Metoprolol Tartrate 25 MG TAB PO SCH ×2 (08:30→20:55)
[2023-01-12] MEDS: Acetaminophen/Codeine 30-300mg Tablet PO SCH ×4 (08:30→21:03)
[2023-01-12] MEDS: Spironolactone 25 MG TAB PO SCH (08:30)
[2023-01-12] MEDS: Polyethylene Glycol 3350 17 GM Packet PO SCH ×2 (08:31→20:56)
[2023-01-12] MEDS: Senokot S 8.6-50 MG TAB PO SCH ×2 (08:31→20:56)
[2023-01-12] MEDS: Polyethylene Glycol OPTH DROP 15 ML BOT EA EYE SCH ×2 (08:31→20:58)
[2023-01-12] MEDS: Pantoprazole 40 MG VIAL IVP SCH (09:20)
[2023-01-12 12:25] LABS: Anion Gap 23 mmol/L (10-20); BUN (Urea Nitrogen) 57 mg/dL (9.8-20.1); Calc. Creatinine Clearance 42 mL/min (70-130); Calcium 8.8 mg/dL (7.8-10.44); Carbon Dioxide 16 mmol/L (23-31); Chloride 102 mmol/L (98-107); Estimated GFR 38; Glucose 96 mg/dL (83-110); Potassium 4.3 mmol/L (3.5-5.1); Sodium 137 mmol/L (136-145)
[2023-01-12] MEDS ORDERED: Sodium Chloride 0.9% 500 ML IV SCH (15:00)
[2023-01-12] MEDS: Rivaroxaban 10 MG TAB PO SCH (17:42)
[2023-01-12] MEDS: Oxybutynin 5 MG TAB PO SCH (20:56)
[2023-01-12] MEDS: Simvastatin 10 MG TAB PO SCH (20:56)
[2023-01-13] MEDS: Acetaminophen 325 MG TAB PO SCH ×4 (02:22→21:28)
[2023-01-13] MEDS: Acetaminophen/Codeine 30-300mg Tablet PO SCH ×3 (02:23→15:50)
[2023-01-13] MEDS: Levothyroxine Sodium 112 MCG TAB PO SCH (05:00)
[2023-01-13] MEDS ORDERED: Furosemide 40 MG TAB PO SCH (09:00)
[2023-01-13] MEDS: Pantoprazole 40 MG VIAL IVP SCH (11:04)
[2023-01-13] MEDS: Metoprolol Tartrate 25 MG TAB PO SCH ×2 (11:04→21:27)
[2023-01-13] MEDS: Senokot S 8.6-50 MG TAB PO SCH ×3 (11:08→21:28)
[2023-01-13] MEDS: Polyethylene Glycol 3350 17 GM Packet PO SCH ×3 (11:08→21:27)
[2023-01-13] MEDS: Spironolactone 25 MG TAB PO SCH (11:10)
[2023-01-13] MEDS: Polyethylene Glycol OPTH DROP 15 ML BOT EA EYE SCH ×2 (11:13→21:29)
[2023-01-13 11:55] VITALS: BMI 31.8
[2023-01-13] MEDS: Rivaroxaban 10 MG TAB PO SCH (18:29)
[2023-01-13] MEDS: traMADol HCl 50 MG TAB PO PRN (19:17)
[2023-01-13] MEDS: Simvastatin 10 MG TAB PO SCH (21:28)
[2023-01-13] MEDS: Oxybutynin 5 MG TAB PO SCH (21:28)
[2023-01-13] MEDS: Morphine 4 MG/ML VIAL SLOW IVP PRN (21:32)
[2023-01-14] MEDS: Acetaminophen 325 MG TAB PO SCH ×3 (02:09→14:14)
[2023-01-14] MEDS: Levothyroxine Sodium 112 MCG TAB PO SCH (05:16)
[2023-01-14] MEDS: Morphine 4 MG/ML VIAL SLOW IVP PRN ×2 (07:51→11:39)
[2023-01-14] MEDS: Polyethylene Glycol 3350 17 GM Packet PO SCH (07:53)
[2023-01-14] MEDS: Metoprolol Tartrate 25 MG TAB PO SCH (07:53)
[2023-01-14] MEDS: Polyethylene Glycol OPTH DROP 15 ML BOT EA EYE SCH (07:53)
[2023-01-14] MEDS: Spironolactone 25 MG TAB PO SCH (07:53)
[2023-01-14] MEDS: Senokot S 8.6-50 MG TAB PO SCH (07:54)
[2023-01-14] MEDS: Ondansetron PF 4 MG/2 ML Vial IVP PRN (11:50)
[2023-01-14 12:50] VITALS: BP 111/60; TEMP 98.1
[2023-01-14] MEDS: traMADol HCl 50 MG TAB PO PRN (14:09)
== END 2023-01-14 15:57 | disposition hospice, inpatient (51) | DRG 326 ==
LOC: ERS 11:39 → SURG A 15:34 → IMCU/EMU 01-03 19:32 → SJJU 01-07 22:02
PROVIDERS: ADMIT Surgery; ATTEND Surgery
PROC: 0DBN0ZZ Excision of Sigmoid Colon, Open Approach (ICD-10-PCS; principal; 2023-01-03)
PROC: 0BQT0ZZ Repair Diaphragm, Open Approach (ICD-10-PCS; 2023-01-03)
PROC: 0DQV0ZZ Repair Mesentery, Open Approach (ICD-10-PCS; 2023-01-03)
PROC: 30233K1 Transfusion of Nonautologous Frozen Plasma into Peripheral Vein, Percutaneous Approach (ICD-10-PCS; 2023-01-03)
PROC: 0D1N0Z4 Bypass Sigmoid Colon to Cutaneous, Open Approach (ICD-10-PCS; 2023-01-03)
PROC: 3E0M05Z Introduction of Adhesion Barrier into Peritoneal Cavity, Open Approach (ICD-10-PCS; 2023-01-03)
PROC: 30233J1 Transfusion of Nonautologous Serum Albumin into Peripheral Vein, Percutaneous Approach (ICD-10-PCS; 2023-01-03)
PROC: 3E033XZ Introduction of Vasopressor into Peripheral Vein, Percutaneous Approach (ICD-10-PCS; 2023-01-03)
DX: K56.2 Volvulus (principal); G93.41 Metabolic encephalopathy; I50.33 Acute on chronic diastolic (congestive) heart failure; C18.9 Malignant neoplasm of colon, unspecified; K91.89 Other postprocedural complications and disorders of digestive system; K59.39 Other megacolon; N17.9 Acute kidney failure, unspecified; K40.30 Unilateral inguinal hernia, with obstruction, without gangrene, not specified as recurrent; Q43.8 Other specified congenital malformations of intestine; I48.21 Permanent atrial fibrillation; Z51.5 Encounter for palliative care; Z66 Do not resuscitate; K56.7 Ileus, unspecified; I11.0 Hypertensive heart disease with heart failure; E03.9 Hypothyroidism, unspecified; K21.9 Gastro-esophageal reflux disease without esophagitis; E78.2 Mixed hyperlipidemia; Z96.643 Presence of artificial hip joint, bilateral; Z96.651 Presence of right artificial knee joint; Z90.89 Acquired absence of other organs; Z79.82 Long term (current) use of aspirin; Z79.899 Other long term (current) drug therapy; Z79.01 Long term (current) use of anticoagulants; K44.9 Diaphragmatic hernia without obstruction or gangrene
CPT/HCPCS: 36415; 36430; 71045; 74018; 74177; 80048; 80053; 81001; 82533; 82570; 83605; 83690; 83735; 83880; 84100; 84300; 85025; 85610; 85730; 86850; 86900; 86901; 88307; 93005; 93010; 93306; 94640; 96361; 96374; 96375; 96376; A4649; C1776; C9113; J0694; J1100; J1160; J1885; J1940; J2270; J2272; J2405; J2704; J3010; J3475; J3480; J3490; J7030; J7050; J7120; J7620; P9045; P9059; Q9967; S0028